=== PATIENT | male | born 1945 | race Caucasian/White ===

== ENCOUNTER 2017-09-08 10:59 | Day surgery (SDC) | payer MEDICARE, BC ==
[~2017-09-08 10:59] MED LIST: ACET325 PO; ALUMAG30SU PO; ASCO500 PO; ASPI325 PO; ASPI325EC PO; ASPI81CH PO; ATOR40TA PO; AVALOX PO; Biscolax10 MG PR; CALCAVITD PO; CLOP75 PO; DIAZ2 PO; DOCU100 PO; ERGO400 PO; ERGO50000 PO; FAMO20 PO; FERGLU300 PO; Fergon240 M1 PO; HYDR1TAB94 PO; Lisinopril2.5 MG PO; METO25ER PO; MORP30ER PO; MULVITMIND PO; Milk Of Ma400 MG/5 M PO; NITR.4SL SL; NTG SL; OMEPRAZOLE MAGN20 MG PO; OXYACE5T PO; POTCHL10ER PO; PRED5 PO; RISE30 PO; RISE5 PO; SIMV10 PO; SIMV20 PO; SULTRIDS PO; VITAMIN D5000 UNIT PO
== END 2017-09-08 12:25 | disposition home or self-care (01) ==
LOC: WOUND 10:59
DX: Z48.00 Encounter for change or removal of nonsurgical wound dressing (principal); L89.154 Pressure ulcer of sacral region, stage 4
CPT/HCPCS: G0463

== ENCOUNTER 2017-10-07 00:37 | Day surgery (SDC) | payer MEDICARE, BC | END 2017-10-07 22:00 | disposition home or self-care (01) | LOC: WOUND 00:37 | DX: Z48.00 Encounter for change or removal of nonsurgical wound dressing (principal); L89.154 Pressure ulcer of sacral region, stage 4 | CPT/HCPCS: 36415; 80053; 85025; G0463 ==

== ENCOUNTER 2017-10-21 00:11 | Day surgery (SDC) | payer MEDICARE, BC | END 2017-10-21 22:59 | disposition home or self-care (01) | LOC: WOUND 00:11 | DX: Z48.00 Encounter for change or removal of nonsurgical wound dressing (principal); L89.154 Pressure ulcer of sacral region, stage 4 | CPT/HCPCS: G0463 ==

== ENCOUNTER 2017-11-04 13:52 | Day surgery (SDC) | payer MEDICARE, BC | END 2017-11-04 17:03 | disposition home or self-care (01) | LOC: WOUND 13:52 | PROC: 0HB6XZZ Excision of Back Skin, External Approach (ICD-10-PCS; principal; 2017-11-04) | DX: L89.154 Pressure ulcer of sacral region, stage 4 (principal) | CPT/HCPCS: G0463 ==

== ENCOUNTER 2017-12-08 00:13 | Day surgery (SDC) | payer MEDICARE, BC | END 2017-12-08 22:39 | disposition home or self-care (01) | LOC: WOUND | DX: Z48.00 Encounter for change or removal of nonsurgical wound dressing (principal); L89.154 Pressure ulcer of sacral region, stage 4 | CPT/HCPCS: G0463 ==

== ENCOUNTER 2017-12-29 00:13 | Day surgery (SDC) | payer MEDICARE, BC | END 2017-12-29 23:00 | disposition home or self-care (01) | LOC: WOUND 00:13 | DX: Z48.00 Encounter for change or removal of nonsurgical wound dressing (principal); L89.154 Pressure ulcer of sacral region, stage 4 | CPT/HCPCS: G0463 ==

== ENCOUNTER 2018-01-31 14:00 | Day surgery (SDC) | payer MEDICARE, BC | END 2018-01-31 14:29 | disposition home or self-care (01) | LOC: WOUND 14:00 | DX: Z48.00 Encounter for change or removal of nonsurgical wound dressing (principal); L89.154 Pressure ulcer of sacral region, stage 4 | CPT/HCPCS: G0463 ==

== ENCOUNTER 2018-03-03 15:45 | Day surgery (SDC) | payer MEDICARE, BC | END 2018-03-03 17:01 | disposition home or self-care (01) | LOC: WOUND 15:45 | DX: L89.154 Pressure ulcer of sacral region, stage 4 (principal); I25.2 Old myocardial infarction | CPT/HCPCS: G0463 ==

== ENCOUNTER 2018-03-31 10:08 | Day surgery (SDC) | payer MEDICARE, BC ==
[2018-03-31] MEDS ORDERED: POTA10T PO (14:45)
== END 2018-03-31 14:26 | disposition home or self-care (01) ==
LOC: ATC 10:08
DX: L89.154 Pressure ulcer of sacral region, stage 4 (principal); I10 Essential (primary) hypertension; E78.5 Hyperlipidemia, unspecified
CPT/HCPCS: 99212

== ENCOUNTER 2018-08-30 12:29 | Day surgery (SDC) | payer MEDICARE, BC ==
[~2018-08-30 12:29] MED LIST changes: +POTA10T PO
== END 2018-08-30 22:38 | disposition home or self-care (01) ==
LOC: WOUND 12:29
DX: L89.153 Pressure ulcer of sacral region, stage 3 (principal); G82.20 Paraplegia, unspecified
CPT/HCPCS: G0463

== ENCOUNTER 2018-10-02 14:15 | Day surgery (SDC) | payer MEDICARE, BC | END 2018-10-02 22:40 | disposition home or self-care (01) | LOC: WOUND 14:15 | DX: L89.154 Pressure ulcer of sacral region, stage 4 (principal); L89.229 Pressure ulcer of left hip, unspecified stage; G82.20 Paraplegia, unspecified ==

== ENCOUNTER 2018-10-30 00:46 | Day surgery (SDC) | payer MEDICARE, BC | END 2018-10-30 22:51 | disposition home or self-care (01) | LOC: WOUND 00:46 | DX: L89.154 Pressure ulcer of sacral region, stage 4 (principal); G82.20 Paraplegia, unspecified ==

== ENCOUNTER 2018-11-28 00:26 | Day surgery (SDC) | payer MEDICARE, BC | END 2018-11-28 22:51 | disposition home or self-care (01) | LOC: WOUND 00:26 | DX: L89.154 Pressure ulcer of sacral region, stage 4 (principal); G82.20 Paraplegia, unspecified; I89.0 Lymphedema, not elsewhere classified; I25.10 Atherosclerotic heart disease of native coronary artery without angina pectoris; I10 Essential (primary) hypertension; I25.2 Old myocardial infarction; I73.9 Peripheral vascular disease, unspecified; G62.9 Polyneuropathy, unspecified ==

== ENCOUNTER 2018-12-26 10:52 | Day surgery (SDC) | payer MEDICARE, BC | END 2018-12-26 22:59 | disposition home or self-care (01) | LOC: WOUND 10:52 | DX: L89.154 Pressure ulcer of sacral region, stage 4 (principal); G82.20 Paraplegia, unspecified ==

== ENCOUNTER 2019-01-22 01:36 | Day surgery (SDC) | payer MEDICARE, BC | END 2019-01-22 22:39 | disposition home or self-care (01) | LOC: WOUND 01:36 | DX: L89.154 Pressure ulcer of sacral region, stage 4 (principal); G82.20 Paraplegia, unspecified; I25.10 Atherosclerotic heart disease of native coronary artery without angina pectoris; I11.0 Hypertensive heart disease with heart failure; I50.9 Heart failure, unspecified; I25.2 Old myocardial infarction ==

== ENCOUNTER 2019-02-19 10:55 | Day surgery (SDC) | payer MEDICARE, BC | END 2019-02-19 22:47 | disposition home or self-care (01) | LOC: WOUND 10:55 | PROC: 0HD6XZZ Extraction of Back Skin, External Approach (ICD-10-PCS; principal; 2019-02-19) | DX: L89.154 Pressure ulcer of sacral region, stage 4 (principal); G82.22 Paraplegia, incomplete ==

== ENCOUNTER 2019-03-26 00:24 | Day surgery (SDC) | payer MEDICARE, BC | END 2019-03-26 23:12 | disposition home or self-care (01) | LOC: WOUND 00:24 | DX: L89.154 Pressure ulcer of sacral region, stage 4 (principal); G82.20 Paraplegia, unspecified ==

== ENCOUNTER 2019-05-08 00:30 | Day surgery (SDC) | payer MEDICARE, BC | END 2019-05-08 22:48 | disposition home or self-care (01) | LOC: WOUND 00:30 | DX: L89.154 Pressure ulcer of sacral region, stage 4 (principal); G82.20 Paraplegia, unspecified; I11.0 Hypertensive heart disease with heart failure; I50.9 Heart failure, unspecified; I25.10 Atherosclerotic heart disease of native coronary artery without angina pectoris | CPT/HCPCS: Q4196 ==

== ENCOUNTER 2019-05-14 11:12 | Day surgery (SDC) | payer MEDICARE, BC | END 2019-05-14 23:07 | disposition home or self-care (01) | LOC: WOUND 11:12 | DX: L89.154 Pressure ulcer of sacral region, stage 4 (principal); G82.20 Paraplegia, unspecified; I11.0 Hypertensive heart disease with heart failure; I25.10 Atherosclerotic heart disease of native coronary artery without angina pectoris | CPT/HCPCS: G0463 ==

== ENCOUNTER 2019-06-12 00:20 | Day surgery (SDC) | payer MEDICARE, BC | END 2019-06-12 22:44 | disposition home or self-care (01) | LOC: WOUND 00:20 | DX: L89.154 Pressure ulcer of sacral region, stage 4 (principal); G82.20 Paraplegia, unspecified; I11.0 Hypertensive heart disease with heart failure; I50.9 Heart failure, unspecified; I25.10 Atherosclerotic heart disease of native coronary artery without angina pectoris ==

== ENCOUNTER 2019-06-18 14:02 | Day surgery (SDC) | payer MEDICARE, BC | END 2019-06-18 22:45 | disposition home or self-care (01) | LOC: WOUND 14:02 | DX: L89.154 Pressure ulcer of sacral region, stage 4 (principal); G82.20 Paraplegia, unspecified ==

== ENCOUNTER 2019-06-27 14:21 | Day surgery (SDC) | payer MEDICARE, BC | END 2019-06-29 23:12 | disposition home or self-care (01) | LOC: WOUND 14:21 | DX: L89.154 Pressure ulcer of sacral region, stage 4 (principal); G82.20 Paraplegia, unspecified; I11.0 Hypertensive heart disease with heart failure; I50.9 Heart failure, unspecified ==

== ENCOUNTER 2019-07-05 00:18 | Day surgery (SDC) | payer MEDICARE, BC | END 2019-07-05 23:15 | disposition home or self-care (01) | LOC: WOUND 00:18 | DX: L89.154 Pressure ulcer of sacral region, stage 4 (principal); G82.22 Paraplegia, incomplete | CPT/HCPCS: G0463 ==

== ENCOUNTER 2019-07-12 10:52 | Day surgery (SDC) | payer MEDICARE, BC | END 2019-07-12 23:18 | disposition home or self-care (01) | LOC: WOUND 10:52 | DX: L89.154 Pressure ulcer of sacral region, stage 4 (principal); G82.20 Paraplegia, unspecified ==

== ENCOUNTER 2019-08-23 00:26 | Day surgery (SDC) | payer MEDICARE, BC | END 2019-08-23 23:14 | disposition home or self-care (01) | LOC: WOUND 00:26 | DX: I96 Gangrene, not elsewhere classified (principal); L89.154 Pressure ulcer of sacral region, stage 4; G82.22 Paraplegia, incomplete; I89.0 Lymphedema, not elsewhere classified; D64.9 Anemia, unspecified; I11.0 Hypertensive heart disease with heart failure; I50.9 Heart failure, unspecified; I25.10 Atherosclerotic heart disease of native coronary artery without angina pectoris; G62.9 Polyneuropathy, unspecified; I25.2 Old myocardial infarction; Z86.718 Personal history of other venous thrombosis and embolism; Z79.82 Long term (current) use of aspirin; Z79.02 Long term (current) use of antithrombotics/antiplatelets; Z79.899 Other long term (current) drug therapy | CPT/HCPCS: G0463 ==

== ENCOUNTER 2019-09-20 00:28 | Day surgery (SDC) | payer MEDICARE, BC | END 2019-09-20 11:25 | disposition home or self-care (01) | LOC: WOUND 00:28 | DX: L89.154 Pressure ulcer of sacral region, stage 4 (principal); G82.20 Paraplegia, unspecified ==

== ENCOUNTER 2019-10-18 00:12 | Day surgery (SDC) | payer MEDICARE, BC | END 2019-10-18 23:01 | disposition home or self-care (01) | LOC: WOUND 00:12 | DX: L89.154 Pressure ulcer of sacral region, stage 4 (principal); G82.20 Paraplegia, unspecified ==

== ENCOUNTER 2019-11-20 08:43 | Day surgery (SDC) | payer MEDICARE, BC | END 2019-11-20 22:49 | disposition home or self-care (01) | LOC: WOUND 08:43 | DX: L89.154 Pressure ulcer of sacral region, stage 4 (principal); G82.22 Paraplegia, incomplete ==

== ENCOUNTER 2019-12-20 00:08 | Day surgery (SDC) | payer MEDICARE, BC | END 2019-12-20 22:42 | disposition home or self-care (01) | LOC: WOUND 00:08 | DX: L89.154 Pressure ulcer of sacral region, stage 4 (principal); G82.20 Paraplegia, unspecified ==

== ENCOUNTER 2020-01-16 08:31 | Day surgery (SDC) | payer MEDICARE, BC | END 2020-01-16 22:53 | disposition home or self-care (01) | LOC: WOUND 08:31 | DX: L89.154 Pressure ulcer of sacral region, stage 4 (principal); G82.20 Paraplegia, unspecified ==

== ENCOUNTER 2020-04-17 00:24 | Day surgery (SDC) | payer MEDICARE, BC | END 2020-04-17 22:37 | disposition home or self-care (01) | LOC: WOUND 00:24 | DX: L89.154 Pressure ulcer of sacral region, stage 4 (principal); G82.20 Paraplegia, unspecified ==

== ENCOUNTER 2020-05-16 00:31 | Day surgery (SDC) | payer MEDICARE, BC | END 2020-05-16 12:00 | disposition home or self-care (01) | LOC: WOUND 00:31 | DX: L89.154 Pressure ulcer of sacral region, stage 4 (principal); G82.20 Paraplegia, unspecified | CPT/HCPCS: G0463 ==

== ENCOUNTER 2020-06-13 02:13 | Day surgery (SDC) | payer MEDICARE, BC | END 2020-06-13 22:58 | disposition home or self-care (01) | LOC: WOUND 02:13 | DX: L89.154 Pressure ulcer of sacral region, stage 4 (principal); G82.20 Paraplegia, unspecified ==

== ENCOUNTER 2020-07-11 00:49 | Day surgery (SDC) | payer MEDICARE, BC | END 2020-07-11 23:58 | disposition home or self-care (01) | LOC: WOUND 00:49 | DX: I96 Gangrene, not elsewhere classified (principal); L89.154 Pressure ulcer of sacral region, stage 4; G82.20 Paraplegia, unspecified; I89.0 Lymphedema, not elsewhere classified; D64.9 Anemia, unspecified; I11.0 Hypertensive heart disease with heart failure; I50.9 Heart failure, unspecified; I25.10 Atherosclerotic heart disease of native coronary artery without angina pectoris; E78.5 Hyperlipidemia, unspecified; K21.9 Gastro-esophageal reflux disease without esophagitis; G89.4 Chronic pain syndrome; I25.2 Old myocardial infarction; G62.9 Polyneuropathy, unspecified; Z79.02 Long term (current) use of antithrombotics/antiplatelets; Z79.82 Long term (current) use of aspirin; Z79.899 Other long term (current) drug therapy; Z86.718 Personal history of other venous thrombosis and embolism | CPT/HCPCS: G0463 ==

== ENCOUNTER 2020-08-08 00:43 | Day surgery (SDC) | payer MEDICARE, BC | END 2020-08-08 23:35 | disposition home or self-care (01) | LOC: WOUND 00:43 | DX: I96 Gangrene, not elsewhere classified (principal); L89.154 Pressure ulcer of sacral region, stage 4; G82.22 Paraplegia, incomplete; I89.0 Lymphedema, not elsewhere classified; I11.0 Hypertensive heart disease with heart failure; I50.9 Heart failure, unspecified; I25.10 Atherosclerotic heart disease of native coronary artery without angina pectoris; D64.9 Anemia, unspecified; I25.2 Old myocardial infarction; G62.9 Polyneuropathy, unspecified; Z79.82 Long term (current) use of aspirin; Z79.899 Other long term (current) drug therapy; Z79.02 Long term (current) use of antithrombotics/antiplatelets | CPT/HCPCS: G0463 ==

== ENCOUNTER 2020-09-08 00:28 | Day surgery (SDC) | payer MEDICARE, BC | END 2020-09-08 22:40 | disposition home or self-care (01) | LOC: WOUND 00:28 | DX: L89.154 Pressure ulcer of sacral region, stage 4 (principal); G82.20 Paraplegia, unspecified | CPT/HCPCS: G0463 ==

== ENCOUNTER 2020-10-03 02:27 | Day surgery (SDC) | payer MEDICARE, BC | END 2020-10-03 22:43 | disposition home or self-care (01) | LOC: WOUND 02:27 | DX: L89.154 Pressure ulcer of sacral region, stage 4 (principal); G82.22 Paraplegia, incomplete ==

== ENCOUNTER 2020-10-31 00:58 | Day surgery (SDC) | payer MEDICARE, BC | END 2020-10-31 23:07 | disposition home or self-care (01) | LOC: WOUND 00:58 | DX: L89.154 Pressure ulcer of sacral region, stage 4 (principal); G82.20 Paraplegia, unspecified ==

== ENCOUNTER 2020-11-27 00:27 | Day surgery (SDC) | payer MEDICARE, BC | END 2020-11-27 22:54 | disposition home or self-care (01) | LOC: WOUND 00:27 | DX: L89.154 Pressure ulcer of sacral region, stage 4 (principal); G82.20 Paraplegia, unspecified ==

== ENCOUNTER 2020-12-25 01:55 | Day surgery (SDC) | payer MEDICARE, BC | END 2020-12-25 23:13 | disposition home or self-care (01) | LOC: WOUND 01:55 | DX: L89.154 Pressure ulcer of sacral region, stage 4 (principal); G82.20 Paraplegia, unspecified ==

== ENCOUNTER 2021-01-22 05:32 | Day surgery (SDC) | payer MEDICARE, BC | END 2021-01-22 22:44 | disposition home or self-care (01) | LOC: WOUND 05:32 | DX: L89.154 Pressure ulcer of sacral region, stage 4 (principal); G82.20 Paraplegia, unspecified ==

== ENCOUNTER 2021-02-19 02:31 | Day surgery (SDC) | payer MEDICARE, BC | END 2021-02-19 23:11 | disposition home or self-care (01) | LOC: WOUND 02:31 | DX: L89.154 Pressure ulcer of sacral region, stage 4 (principal); G82.20 Paraplegia, unspecified ==

== ENCOUNTER 2021-03-19 02:15 | Day surgery (SDC) | payer MEDICARE, BC | END 2021-03-19 22:41 | disposition home or self-care (01) | LOC: WOUND 02:15 | DX: L89.154 Pressure ulcer of sacral region, stage 4 (principal); G82.20 Paraplegia, unspecified | CPT/HCPCS: A9270 ==

== ENCOUNTER 2021-04-16 01:58 | Day surgery (SDC) | payer MEDICARE, BC | END 2021-04-16 23:32 | disposition home or self-care (01) | LOC: WOUND 01:58 | DX: L89.154 Pressure ulcer of sacral region, stage 4 (principal); G82.22 Paraplegia, incomplete ==

== ENCOUNTER 2021-05-19 12:35 | Day surgery (SDC) | payer MEDICARE, BC | END 2021-05-19 22:43 | disposition home or self-care (01) | LOC: WOUND 12:35 | DX: L89.154 Pressure ulcer of sacral region, stage 4 (principal) ==

== ENCOUNTER 2021-06-18 01:33 | Day surgery (SDC) | payer MEDICARE, BC | END 2021-06-18 23:07 | disposition home or self-care (01) | LOC: WOUND 01:33 | DX: L89.154 Pressure ulcer of sacral region, stage 4 (principal); G82.20 Paraplegia, unspecified ==

== ENCOUNTER 2021-07-14 05:35 | Day surgery (SDC) | payer MEDICARE, BC | END 2021-07-14 22:44 | disposition home or self-care (01) | LOC: WOUND 05:35 | DX: L89.154 Pressure ulcer of sacral region, stage 4 (principal); G82.20 Paraplegia, unspecified | CPT/HCPCS: A9270; G0463 ==

== ENCOUNTER 2021-08-11 04:19 | Day surgery (SDC) | payer MEDICARE, BC | END 2021-08-11 12:00 | disposition home or self-care (01) | LOC: WOUND 04:19 | DX: L89.154 Pressure ulcer of sacral region, stage 4 (principal); G82.20 Paraplegia, unspecified ==

== ENCOUNTER 2021-09-08 05:48 | Day surgery (SDC) | payer MEDICARE, BC | END 2021-09-08 22:40 | disposition home or self-care (01) | LOC: WOUND 05:48 | DX: L89.154 Pressure ulcer of sacral region, stage 4 (principal); G82.20 Paraplegia, unspecified ==

== ENCOUNTER 2021-10-06 04:12 | Day surgery (SDC) | payer MEDICARE, BC | END 2021-10-06 22:39 | disposition home or self-care (01) | LOC: WOUND 04:12 | DX: L89.154 Pressure ulcer of sacral region, stage 4 (principal); G82.20 Paraplegia, unspecified | CPT/HCPCS: A9270 ==

== ENCOUNTER 2021-11-03 08:00 | Day surgery (SDC) | payer MEDICARE, BC | END 2021-11-03 23:59 | disposition home or self-care (01) | LOC: WOUND 08:00 | DX: L89.154 Pressure ulcer of sacral region, stage 4 (principal); G82.20 Paraplegia, unspecified | CPT/HCPCS: A9270 ==

== ENCOUNTER 2021-12-01 02:12 | Day surgery (SDC) | payer MEDICARE, BC | END 2021-12-01 22:58 | disposition home or self-care (01) | LOC: WOUND 02:12 | DX: L89.154 Pressure ulcer of sacral region, stage 4 (principal); G82.20 Paraplegia, unspecified | CPT/HCPCS: A9270 ==

== ENCOUNTER 2021-12-29 03:02 | Day surgery (SDC) | payer MEDICARE, BC | END 2021-12-29 23:31 | disposition home or self-care (01) | LOC: WOUND 03:02 | DX: L89.154 Pressure ulcer of sacral region, stage 4 (principal); G82.20 Paraplegia, unspecified | CPT/HCPCS: A9270 ==

== ENCOUNTER 2022-01-26 01:07 | Day surgery (SDC) | payer MEDICARE, BC | END 2022-01-26 23:24 | disposition home or self-care (01) | LOC: WOUND 01:07 | DX: L89.154 Pressure ulcer of sacral region, stage 4 (principal); G82.20 Paraplegia, unspecified | CPT/HCPCS: A9270 ==

== ENCOUNTER 2022-02-23 01:27 | Day surgery (SDC) | payer MEDICARE, BC | END 2022-02-23 05:34 | disposition home or self-care (01) | LOC: WOUND 01:27 | DX: L89.154 Pressure ulcer of sacral region, stage 4 (principal); G82.20 Paraplegia, unspecified | CPT/HCPCS: G0463 ==

== ENCOUNTER 2022-04-27 01:49 | Day surgery (SDC) | payer MEDICARE, BC | END 2022-04-27 23:53 | disposition home or self-care (01) | LOC: WOUND 01:49 | DX: L89.154 Pressure ulcer of sacral region, stage 4 (principal); G82.20 Paraplegia, unspecified ==

== ENCOUNTER 2022-05-25 02:26 | Day surgery (SDC) | payer MEDICARE, BC | END 2022-05-25 22:52 | disposition home or self-care (01) | LOC: WOUND 02:26 | DX: L89.154 Pressure ulcer of sacral region, stage 4 (principal); G82.20 Paraplegia, unspecified ==

== ENCOUNTER 2022-06-22 03:04 | Day surgery (SDC) | payer MEDICARE, BC | END 2022-06-22 23:24 | disposition home or self-care (01) | LOC: WOUND 03:04 | DX: L89.154 Pressure ulcer of sacral region, stage 4 (principal); G82.20 Paraplegia, unspecified ==

== ENCOUNTER 2022-07-27 02:16 | Day surgery (SDC) | payer MEDICARE, BC | END 2022-07-27 23:05 | disposition home or self-care (01) | LOC: WOUND 02:16 | DX: L89.154 Pressure ulcer of sacral region, stage 4 (principal); G82.20 Paraplegia, unspecified ==

== ENCOUNTER 2022-08-24 01:26 | Day surgery (SDC) | payer MEDICARE, BC | END 2022-08-24 22:40 | disposition home or self-care (01) | LOC: WOUND 01:26 | DX: L89.154 Pressure ulcer of sacral region, stage 4 (principal); G82.20 Paraplegia, unspecified ==

== ENCOUNTER 2022-09-28 01:03 | Day surgery (SDC) | payer MEDICARE, BC | END 2022-09-28 22:57 | disposition home or self-care (01) | LOC: WOUND 01:03 | DX: L89.154 Pressure ulcer of sacral region, stage 4 (principal); G82.20 Paraplegia, unspecified ==

== ENCOUNTER 2022-10-26 00:27 | Day surgery (SDC) | payer MEDICARE, BC | END 2022-10-26 23:04 | disposition home or self-care (01) | LOC: WOUND 00:27 | DX: L89.154 Pressure ulcer of sacral region, stage 4 (principal); G82.20 Paraplegia, unspecified | CPT/HCPCS: G0463 ==

== ENCOUNTER 2022-11-23 02:34 | Day surgery (SDC) | payer MEDICARE, BC | END 2022-11-23 22:48 | disposition home or self-care (01) | LOC: WOUND 02:34 | DX: L89.154 Pressure ulcer of sacral region, stage 4 (principal); G82.20 Paraplegia, unspecified | CPT/HCPCS: A9270 ==

== ENCOUNTER 2023-01-04 02:38 | Day surgery (SDC) | payer MEDICARE, BC | END 2023-01-04 23:03 | disposition home or self-care (01) | LOC: WOUND 02:38 | DX: L89.154 Pressure ulcer of sacral region, stage 4 (principal); G82.20 Paraplegia, unspecified | CPT/HCPCS: G0463 ==

== ENCOUNTER 2023-01-10 01:26 | Day surgery (SDC) | payer MEDICARE, BC | END 2023-01-10 22:55 | disposition home or self-care (01) | LOC: WOUND 01:26 | DX: L89.154 Pressure ulcer of sacral region, stage 4 (principal); G82.20 Paraplegia, unspecified | CPT/HCPCS: G0463 ==

== ENCOUNTER 2023-04-11 00:49 | Day surgery (SDC) | payer MEDICARE, BC | END 2023-04-11 22:46 | disposition home or self-care (01) | LOC: WOUND 00:49 | DX: L89.154 Pressure ulcer of sacral region, stage 4 (principal); G82.20 Paraplegia, unspecified | CPT/HCPCS: G0463 ==

== ENCOUNTER 2023-05-09 01:56 | Day surgery (SDC) | payer MEDICARE, BC | END 2023-05-09 22:58 | disposition home or self-care (01) | LOC: WOUND 01:56 | DX: L89.154 Pressure ulcer of sacral region, stage 4 (principal); G82.20 Paraplegia, unspecified | CPT/HCPCS: G0463 ==

== ENCOUNTER 2023-06-06 01:59 | Day surgery (SDC) | payer MEDICARE, BC | END 2023-06-06 22:51 | disposition home or self-care (01) | LOC: WOUND 01:59 | DX: L89.154 Pressure ulcer of sacral region, stage 4 (principal); G82.20 Paraplegia, unspecified | CPT/HCPCS: G0463 ==

== ENCOUNTER 2024-07-12 13:06 | Emergency (ER) | payer MEDICARE, BC ==
[~2024-07-12] VITALS: Ht 167.6 cm; Wt 65.8 kg
[2024-07-12 13:50] LABS: BASOPHILS ABSOLUTE AUTO 0.06 K/mm3 (0.00-0.23); BASOPHILS PERCENT AUTO 1 % (0-2); EOSINOPHILS ABSOLUTE AUTO 0.14 K/mm3 (0.00-0.68); EOSINOPHILS PERCENT AUTO 2 % (0-6); Hematocrit 36.1 % (37.0-53.0); Hemoglobin 11.4 g/dL (13.5-17.5); IMMATURE GRAN ABSOLUTE AUTO 0.04 K/mm3 (0.00-0.10); IMMATURE GRAN PERCENT AUTO 0 % (0-1); LYMPHOCYTES ABSOLUTE AUTO 0.66 K/mm3 (0.84-5.20); LYMPHOCYTES PERCENT AUTO 7 % (21-46); MONOCYTES ABSOLUTE AUTO 0.67 K/mm3 (0.16-1.47); MONOCYTES PERCENT AUTO 7 % (4-13); Mean Corpuscular HGB 30.3 pg (26.0-34.0); Mean Corpuscular HGB Conc 31.6 g/dL (31.5-36.5); Mean Corpuscular Volume 96 fL (80-100); Mean Platelet Volume 9.1 fL (9.1-12.4); NEUTROPHILS ABSOLUTE AUTO 7.72 K/mm3 (1.96-9.15); NEUTROPHILS PERCENT AUTO 83 % (41-73); Platelet Count 411 K/mm3 (150-400); RDW Coefficient Variation 13.4 % (11.7-14.2); RDW Standard Deviation 47.1 fL (35.1-46.3); Red Blood Cell Count 3.76 M/mm3 (4.30-5.90); White Blood Cell Count 9.29 K/mm3 (4.00-11.30)
[2024-07-12 14:10] LABS: Albumin, Blood 2.8 g/dL (3.4-5.0); Albumin/Globulin Ratio 0.5 (0.8-1.8); Bilirubin, Total 0.3 mg/dL (0.1-1.0); Bun/Creatinine Ratio 15.2 (12.0-20.0); Creatinine, Blood 1.12 mg/dL (0.60-1.20); Globulin, Blood 5.3 g/dL (2.2-4.0); Potassium, Blood 3.6 mmol/L (3.5-5.5); Total Protein, Blood 8.1 g/dL (6.4-8.2)
[2024-07-12 19:15] VITALS: BP 144/71
== END 2024-07-12 19:45 | disposition home or self-care (01) ==
LOC: ER 13:06
PROVIDERS: Emergency Medicine
DX: S31.000A Unspecified open wound of lower back and pelvis without penetration into retroperitoneum, initial encounter (principal); L89.154 Pressure ulcer of sacral region, stage 4; G82.20 Paraplegia, unspecified; K21.9 Gastro-esophageal reflux disease without esophagitis; I10 Essential (primary) hypertension; I25.2 Old myocardial infarction; I25.10 Atherosclerotic heart disease of native coronary artery without angina pectoris; E78.5 Hyperlipidemia, unspecified; M81.0 Age-related osteoporosis without current pathological fracture; R63.4 Abnormal weight loss; Z91.81 History of falling; Z87.891 Personal history of nicotine dependence; Z79.82 Long term (current) use of aspirin; Z79.02 Long term (current) use of antithrombotics/antiplatelets; Z79.899 Other long term (current) drug therapy; X58.XXXA Exposure to other specified factors, initial encounter
CPT/HCPCS: 72193; 80053; 83605; 85025; 85651; 86140; 87040; 99283-25; Q9967

== ENCOUNTER 2024-07-31 04:09 | Day surgery (SDC) | payer MEDICARE, BC | END 2024-07-31 23:00 | disposition home or self-care (01) | LOC: WOUND 04:09 | DX: L89.154 Pressure ulcer of sacral region, stage 4 (principal); I11.0 Hypertensive heart disease with heart failure; I50.9 Heart failure, unspecified; I25.10 Atherosclerotic heart disease of native coronary artery without angina pectoris; I25.2 Old myocardial infarction; M19.90 Unspecified osteoarthritis, unspecified site; G82.20 Paraplegia, unspecified; S31.000D Unspecified open wound of lower back and pelvis without penetration into retroperitoneum, subsequent encounter; Z87.891 Personal history of nicotine dependence; X58.XXXD Exposure to other specified factors, subsequent encounter | CPT/HCPCS: G0463 ==

== ENCOUNTER 2024-08-07 04:34 | Day surgery (SDC) | payer MEDICARE, BC | END 2024-08-07 23:00 | disposition home or self-care (01) | LOC: WOUND 04:34 | DX: L89.154 Pressure ulcer of sacral region, stage 4 (principal); G82.22 Paraplegia, incomplete | CPT/HCPCS: A6213 ==

== ENCOUNTER 2024-08-27 03:48 | Day surgery (SDC) | payer MEDICARE, BC | END 2024-08-27 23:00 | disposition home or self-care (01) | LOC: WOUND 03:48 | DX: L89.154 Pressure ulcer of sacral region, stage 4 (principal); G82.22 Paraplegia, incomplete; I25.2 Old myocardial infarction | CPT/HCPCS: A6213; G0463 ==

== ENCOUNTER 2024-08-28 10:59 | Day surgery (SDC) | payer OTHER ==
[~2024-08-28] VITALS: Ht 167.6 cm; Wt 71.5 kg
[~2024-08-28 10:59] MED LIST changes: +Balanced Salt Epinephrine Irrigation Solution 500 mL IR SCH; +Lidocaine HCl/Pf 1% 5 ML VIAL XX SCH; +Moxifloxacin HCL 0.5 MG/0.1 ML 0.4MLSYR LEFTEYE SCH; +PHENYLEPHRINE\\TROPICAMIDE\\TETRACAINE OPHTHALMIC DILATING SOLN LEFTEYE PRN; +Povidone-Iodine 450 DROP/30 ML Solution LEFTEYE SCH; +Povidone-Iodine 450 DROP/30 ML Solution ONE; +Tetracaine HCl/Pf 0.5% Opth Soln 4 ml ONE
[2024-08-28] MEDS ORDERED: Diazepam 2 MG Tab ONE (11:20)
[2024-08-28] MEDS ORDERED: Diazepam 5 MG Tab ONE (11:21)
--- NOTE | 2024-08-28 11:34 | NUR ---
08/28/24 1134 EMELY GARCIA PT ADMIN 7MG VALIUM 1X PO W MINIMAL WATER PER . ORDERS BY MILLER.RN . TETRACAINE AND PLEDGETTE TO L EYE AT 1133 AND 1134 THX.RN END NOTE
[2024-08-28 13:07] VITALS: BP 141/74
== END 2024-08-28 12:52 | disposition home or self-care (01) ==
LOC: ORSCSDS 10:59
PROVIDERS: Student in an Organized Health Care Education/Training Program
PROC: 08RK3JZ Replacement of Left Lens with Synthetic Substitute, Percutaneous Approach (ICD-10-PCS; principal; 2024-08-28 12:30)
DX: H25.813 Combined forms of age-related cataract, bilateral (principal); H52.202 Unspecified astigmatism, left eye; I10 Essential (primary) hypertension; I25.10 Atherosclerotic heart disease of native coronary artery without angina pectoris; I25.2 Old myocardial infarction; K21.9 Gastro-esophageal reflux disease without esophagitis; Z79.02 Long term (current) use of antithrombotics/antiplatelets; Z79.899 Other long term (current) drug therapy
CPT/HCPCS: A9270; V2632

== ENCOUNTER 2024-09-03 04:39 | Day surgery (SDC) | payer MEDICARE, BC ==
[~2024-09-03 04:39] MED LIST changes: -Balanced Salt Epinephrine Irrigation Solution 500 mL IR SCH; -Lidocaine HCl/Pf 1% 5 ML VIAL XX SCH; -Moxifloxacin HCL 0.5 MG/0.1 ML 0.4MLSYR LEFTEYE SCH; -PHENYLEPHRINE\\TROPICAMIDE\\TETRACAINE OPHTHALMIC DILATING SOLN LEFTEYE PRN; -Povidone-Iodine 450 DROP/30 ML Solution LEFTEYE SCH; -Povidone-Iodine 450 DROP/30 ML Solution ONE; -Tetracaine HCl/Pf 0.5% Opth Soln 4 ml ONE
[2024-09-04] MEDS ORDERED: AMOX-CLAV 875-1 EAC5 PO (11:43)
== END 2024-09-03 23:00 | disposition home or self-care (01) ==
LOC: WOUND 04:39
DX: L89.154 Pressure ulcer of sacral region, stage 4 (principal); G82.22 Paraplegia, incomplete
CPT/HCPCS: A6213; G0463

== ENCOUNTER 2024-09-04 10:51 | Day surgery (SDC) | payer OTHER ==
[~2024-09-04] VITALS: Ht 167.6 cm; Wt 72.9 kg
[~2024-09-04 10:51] MED LIST changes: +Balanced Salt Epinephrine Irrigation Solution 500 mL IR SCH; +Lidocaine HCl/Pf 1% 5 ML VIAL XX SCH; +Moxifloxacin HCL 0.5 MG/0.1 ML 0.4MLSYR RIGHTEYE SCH; +PHENYLEPHRINE\\TROPICAMIDE\\TETRACAINE OPHTHALMIC DILATING SOLN RIGHTEYE PRN; +Povidone-Iodine 450 DROP/30 ML Solution ONE; +Povidone-Iodine 450 DROP/30 ML Solution RIGHTEYE SCH; +Tetracaine HCl/Pf 0.5% Opth Soln 4 ml ONE
[2024-09-04] MEDS ORDERED: Diazepam 5 MG Tab ONE (11:24)
[2024-09-04] MEDS ORDERED: Diazepam 2 MG Tab ONE (11:24)
[2024-09-04] MEDS ORDERED: AMOX-CLAV 875-1 EAC5 PO (11:43)
--- NOTE | 2024-09-04 11:56 | NUR ---
09/04/24 1156 Hanna Xavier PT STATES HIS ANXIETY IS 0/10.
[2024-09-04 12:49] VITALS: BP 146/78
--- NOTE | 2024-09-04 13:07 | NUR ---
09/04/24 5867 Alexandria Tran PT AMBULATED TO PRIVATE VEHICLE, UTILIZING HOME CRUTCHES. PT STEADY ON CRUTCHES. PT LEAVING W/ ALL BELONGINGS. NO VISIBLE SIGNS OF DISTRESS NOTED.
== END 2024-09-04 13:07 | disposition home or self-care (01) ==
LOC: ORSCSDS 10:51
PROVIDERS: Student in an Organized Health Care Education/Training Program
PROC: 08RJ3JZ Replacement of Right Lens with Synthetic Substitute, Percutaneous Approach (ICD-10-PCS; principal; 2024-09-04 12:30)
DX: H25.811 Combined forms of age-related cataract, right eye (principal); Z96.1 Presence of intraocular lens; I10 Essential (primary) hypertension; I25.2 Old myocardial infarction; I25.10 Atherosclerotic heart disease of native coronary artery without angina pectoris; K21.9 Gastro-esophageal reflux disease without esophagitis; G82.22 Paraplegia, incomplete; Z79.82 Long term (current) use of aspirin; Z79.02 Long term (current) use of antithrombotics/antiplatelets; Z79.899 Other long term (current) drug therapy; Z87.891 Personal history of nicotine dependence
CPT/HCPCS: A9270; V2632

== ENCOUNTER 2024-09-10 04:08 | Day surgery (SDC) | payer MEDICARE, BC ==
[~2024-09-10 04:08] MED LIST changes: +AMOX-CLAV 875-1 EAC5 PO; -Balanced Salt Epinephrine Irrigation Solution 500 mL IR SCH; -Lidocaine HCl/Pf 1% 5 ML VIAL XX SCH; -Moxifloxacin HCL 0.5 MG/0.1 ML 0.4MLSYR RIGHTEYE SCH; -PHENYLEPHRINE\\TROPICAMIDE\\TETRACAINE OPHTHALMIC DILATING SOLN RIGHTEYE PRN; -Povidone-Iodine 450 DROP/30 ML Solution ONE; -Povidone-Iodine 450 DROP/30 ML Solution RIGHTEYE SCH; -Tetracaine HCl/Pf 0.5% Opth Soln 4 ml ONE
== END 2024-09-10 23:00 | disposition home or self-care (01) ==
LOC: WOUND 04:08
DX: L89.154 Pressure ulcer of sacral region, stage 4 (principal); G82.22 Paraplegia, incomplete; I25.2 Old myocardial infarction
CPT/HCPCS: A6213; G0463

== ENCOUNTER 2024-09-17 06:21 | Day surgery (SDC) | payer MEDICARE, BC | END 2024-09-17 23:00 | disposition home or self-care (01) | LOC: WOUND 06:21 | DX: L89.154 Pressure ulcer of sacral region, stage 4 (principal); G82.22 Paraplegia, incomplete | CPT/HCPCS: A6213 ==

== ENCOUNTER 2024-09-25 01:39 | Day surgery (SDC) | payer MEDICARE, BC | END 2024-09-25 23:00 | disposition home or self-care (01) | LOC: WOUND 01:39 | DX: L89.154 Pressure ulcer of sacral region, stage 4 (principal); G82.20 Paraplegia, unspecified | CPT/HCPCS: A6213 ==

== ENCOUNTER 2024-10-01 00:46 | Day surgery (SDC) | payer MEDICARE, BC | END 2024-10-01 23:00 | disposition home or self-care (01) | LOC: WOUND 00:46 | DX: L89.154 Pressure ulcer of sacral region, stage 4 (principal); G82.20 Paraplegia, unspecified | CPT/HCPCS: A6213 ==

== ENCOUNTER 2024-10-08 01:10 | Day surgery (SDC) | payer MEDICARE, BC | END 2024-10-08 23:00 | disposition home or self-care (01) | LOC: WOUND 01:10 | DX: L89.154 Pressure ulcer of sacral region, stage 4 (principal); G82.20 Paraplegia, unspecified | CPT/HCPCS: G0463 ==

== ENCOUNTER 2024-10-15 01:04 | Day surgery (SDC) | payer MEDICARE, BC | END 2024-10-15 23:00 | disposition home or self-care (01) | LOC: WOUND 01:04 | DX: L89.154 Pressure ulcer of sacral region, stage 4 (principal); G82.22 Paraplegia, incomplete | CPT/HCPCS: G0463 ==

== ENCOUNTER 2024-10-22 01:29 | Day surgery (SDC) | payer MEDICARE, BC | END 2024-10-22 23:00 | disposition home or self-care (01) | LOC: WOUND 01:29 | DX: L89.154 Pressure ulcer of sacral region, stage 4 (principal); G82.20 Paraplegia, unspecified | CPT/HCPCS: G0463 ==

== ENCOUNTER 2024-10-29 02:30 | Day surgery (SDC) | payer MEDICARE, BC | END 2024-10-29 23:00 | disposition home or self-care (01) | LOC: WOUND 02:30 | DX: L89.154 Pressure ulcer of sacral region, stage 4 (principal); G82.22 Paraplegia, incomplete; I25.2 Old myocardial infarction | CPT/HCPCS: G0463 ==

== ENCOUNTER 2024-11-05 01:47 | Day surgery (SDC) | payer MEDICARE, BC | END 2024-11-05 23:22 | disposition home or self-care (01) | LOC: WOUND 01:47 | DX: L89.154 Pressure ulcer of sacral region, stage 4 (principal); G82.22 Paraplegia, incomplete; I25.2 Old myocardial infarction ==

== ENCOUNTER 2024-11-12 02:33 | Day surgery (SDC) | payer MEDICARE, BC | END 2024-11-12 22:52 | disposition home or self-care (01) | LOC: WOUND 02:33 | DX: L89.154 Pressure ulcer of sacral region, stage 4 (principal); G82.20 Paraplegia, unspecified | CPT/HCPCS: G0463 ==

== ENCOUNTER 2024-11-19 00:57 | Day surgery (SDC) | payer MEDICARE, BC | END 2024-11-20 23:00 | disposition home or self-care (01) | LOC: WOUND 00:57 | DX: L89.154 Pressure ulcer of sacral region, stage 4 (principal); G82.22 Paraplegia, incomplete; I25.2 Old myocardial infarction | CPT/HCPCS: G0463 ==

== ENCOUNTER 2024-11-26 01:19 | Day surgery (SDC) | payer MEDICARE, BC | END 2024-11-26 23:00 | disposition home or self-care (01) | LOC: WOUND 01:19 | DX: L89.154 Pressure ulcer of sacral region, stage 4 (principal); G82.22 Paraplegia, incomplete; I25.2 Old myocardial infarction | CPT/HCPCS: G0463 ==

== ENCOUNTER 2024-12-03 01:39 | Day surgery (SDC) | payer MEDICARE, BC | END 2024-12-03 23:00 | disposition home or self-care (01) | LOC: WOUND 01:39 | DX: L89.154 Pressure ulcer of sacral region, stage 4 (principal) | CPT/HCPCS: G0463 ==

== ENCOUNTER → 2024-12-10 | Day surgery (SDC) | payer MEDICARE, BC | LOC: WOUND 12:43 | DX: L89.154 Pressure ulcer of sacral region, stage 4 (principal); G82.20 Paraplegia, unspecified | CPT/HCPCS: G0463 ==

== ENCOUNTER 2024-12-17 08:54 | Day surgery (SDC) | payer MEDICARE, BC | END 2024-12-17 23:00 | disposition home or self-care (01) | LOC: WOUND 08:54 | DX: L89.154 Pressure ulcer of sacral region, stage 4 (principal); G82.20 Paraplegia, unspecified | CPT/HCPCS: G0463 ==

== ENCOUNTER 2024-12-24 05:58 | Day surgery (SDC) | payer MEDICARE, BC | END 2024-12-24 23:00 | disposition home or self-care (01) | LOC: WOUND 05:58 | DX: L89.154 Pressure ulcer of sacral region, stage 4 (principal); G82.22 Paraplegia, incomplete | CPT/HCPCS: G0463 ==

== ENCOUNTER 2024-12-31 04:07 | Day surgery (SDC) | payer MEDICARE, BC | END 2024-12-31 23:17 | disposition home or self-care (01) | LOC: WOUND 04:07 | DX: L89.154 Pressure ulcer of sacral region, stage 4 (principal); G82.20 Paraplegia, unspecified | CPT/HCPCS: G0463 ==

== ENCOUNTER 2025-01-07 01:48 | Day surgery (SDC) | payer MEDICARE, BC | END 2025-01-07 23:23 | disposition home or self-care (01) | LOC: WOUND 01:48 | DX: L89.154 Pressure ulcer of sacral region, stage 4 (principal); G82.20 Paraplegia, unspecified | CPT/HCPCS: G0463 ==

== ENCOUNTER 2025-01-28 03:25 | Day surgery (SDC) | payer MEDICARE, BC | END 2025-01-28 23:47 | disposition home or self-care (01) | LOC: WOUND 03:25 | DX: L89.154 Pressure ulcer of sacral region, stage 4 (principal); G82.22 Paraplegia, incomplete | CPT/HCPCS: G0463 ==

== ENCOUNTER 2025-02-18 08:00 | Day surgery (SDC) | payer MEDICARE, BC | END 2025-02-18 23:00 | disposition home or self-care (01) | LOC: WOUND 08:00 | DX: L89.154 Pressure ulcer of sacral region, stage 4 (principal); G82.20 Paraplegia, unspecified | CPT/HCPCS: G0463 ==

== ENCOUNTER 2025-02-25 04:48 | Day surgery (SDC) | payer MEDICARE, BC | END 2025-02-25 23:00 | disposition home or self-care (01) | LOC: WOUND 04:48 | DX: L89.154 Pressure ulcer of sacral region, stage 4 (principal); G82.22 Paraplegia, incomplete | CPT/HCPCS: G0463 ==

== ENCOUNTER 2025-03-11 01:02 | Day surgery (SDC) | payer MEDICARE, BC | END 2025-03-11 23:00 | disposition home or self-care (01) | LOC: WOUND 01:02 | DX: L89.154 Pressure ulcer of sacral region, stage 4 (principal); G82.22 Paraplegia, incomplete ==

== ENCOUNTER 2025-03-18 00:44 | Day surgery (SDC) | payer MEDICARE, BC | END 2025-03-18 23:00 | disposition home or self-care (01) | LOC: WOUND 00:44 | DX: L89.154 Pressure ulcer of sacral region, stage 4 (principal); G82.22 Paraplegia, incomplete ==

== ENCOUNTER 2025-04-01 00:40 | Day surgery (SDC) | payer MEDICARE, BC | END 2025-04-01 23:00 | disposition home or self-care (01) | LOC: WOUND 00:40 | DX: L89.154 Pressure ulcer of sacral region, stage 4 (principal); G82.22 Paraplegia, incomplete; I25.2 Old myocardial infarction ==

== ENCOUNTER 2025-04-29 01:20 | Day surgery (SDC) | payer MEDICARE, BC | END 2025-04-29 23:00 | disposition home or self-care (01) | LOC: WOUND 01:20 | DX: L89.154 Pressure ulcer of sacral region, stage 4 (principal); G82.20 Paraplegia, unspecified; I25.2 Old myocardial infarction ==

== ENCOUNTER 2025-05-06 02:41 | Day surgery (SDC) | payer MEDICARE, BC | END 2025-05-06 23:00 | disposition home or self-care (01) | LOC: WOUND 02:41 | DX: L89.154 Pressure ulcer of sacral region, stage 4 (principal); G82.20 Paraplegia, unspecified ==

== ENCOUNTER 2025-05-12 17:03 | Inpatient (IN) | payer OTHER, MEDICARE, BC ==
[~2025-05-12] VITALS: Ht 170.2 cm; Wt 72.5 kg
[~2025-05-12 17:03] MED LIST changes: +Hair, Skin & N1 EACH PO; -MULVITMIND PO; +OMEP20ER PO; -OMEPRAZOLE MAGN20 MG PO
[2025-05-12 17:38] LABS: BASOPHILS ABSOLUTE AUTO 0.04 K/mm3 (0.00-0.23); BASOPHILS PERCENT AUTO 0 % (0-2); EOSINOPHILS ABSOLUTE AUTO 0.03 K/mm3 (0.00-0.68); EOSINOPHILS PERCENT AUTO 0 % (0-6); Hematocrit 26.0 % (37.0-53.0); Hemoglobin 8.4 g/dL (13.5-17.5); IMMATURE GRAN ABSOLUTE AUTO 0.04 K/mm3 (0.00-0.10); IMMATURE GRAN PERCENT AUTO 0 % (0-1); LYMPHOCYTES ABSOLUTE AUTO 0.31 K/mm3 (0.84-5.20); LYMPHOCYTES PERCENT AUTO 3 % (21-46); MONOCYTES ABSOLUTE AUTO 0.95 K/mm3 (0.16-1.47); MONOCYTES PERCENT AUTO 10 % (4-13); Mean Corpuscular HGB Conc 32.3 g/dL (31.5-36.5); Mean Corpuscular Volume 104 fL (80-100); NEUTROPHILS ABSOLUTE AUTO 8.06 K/mm3 (1.96-9.15); NEUTROPHILS PERCENT AUTO 86 % (41-73); NRBC ABSOLUTE 0.00 K/mm3 (0.00-0.02); NRBC Auto 0.0 /100 WBC (0.0-0.2); Platelet Count 219 K/mm3 (150-400); RDW Coefficient Variation 13.3 % (11.7-14.2); RDW Standard Deviation 50.8 fL (35.1-46.3)
[2025-05-12 17:55] LABS: Alanine Aminotransfer (ALT/SGP 19.0 U/L (12-78); Albumin, Blood 2.7 g/dL (3.4-5.0); Albumin/Globulin Ratio 0.6 (0.8-1.8); Anion Gap 9.0 mmol/L (3-11); Aspartate Aminotrans (AST/SGOT 19.0 U/L (12-37); Bilirubin, Total 0.3 mg/dL (0.1-1.0); Blood Urea Nitrogen 23.0 mg/dL (8-24); CO2, Blood 25.0 mmol/L (21-32); Calcium, Blood 8.6 mg/dL (8.5-10.1); Chloride, Blood 107.0 mmol/L (98-108); Creatinine, Blood 1.44 mg/dL (0.60-1.20); Globulin, Blood 4.3 g/dL (2.2-4.0); Glucose, Blood 124.0 mg/dL (70-99); Magnesium, Blood 2.0 mg/dL (1.6-2.4); Phosphorus, Blood 1.9 mg/dL (2.5-4.9); Potassium, Blood 3.7 mmol/L (3.5-5.5); Sodium, Blood 137.0 mmol/L (136-145); Total Protein, Blood 7.0 g/dL (6.4-8.2)
[2025-05-12 17:58] LABS: Source, Urine Clean Catch
[2025-05-12 18:03] LABS: Bilirubin, Urine Neg (Neg); Color, Urine Yellow (P-Yellow); Glucose Qualitative, Urine Neg (Neg); Ketones, Urine Neg (Neg); Leukocyte Esterase, Urine 3+ (Neg); Protein, Urine 2+ (Neg); Specific Gravity, Urine 1.010 (1.003-1.022); Urobilinogen, Urine NORM (Normal)
[2025-05-12 18:24] LABS: Influenza A, PCR NEGATIVE (NEGATIVE); Influenza B, PCR NEGATIVE (NEGATIVE); Resp Syncytial Virus, PCR NEGATIVE (NEGATIVE); SARS-Cov-2 (COVID-19) PCR, MMC NEGATIVE (NEGATIVE)
[2025-05-12] MEDS ORDERED: Piperacillin/Tazobactam Sod 4.5 GM in NS 100 ML IV ONE (20:10)
[2025-05-12] MEDS ORDERED: Vancomycin (Pharmacy Consult) IV PRN (20:10)
[2025-05-12] MEDS ORDERED: NS 1,000 ML IV SCH ×2 (20:35)
[2025-05-12] MEDS ORDERED: Magnesium Hydroxide Conc 10 ML UDC PO PRN (21:15)
[2025-05-12] MEDS ORDERED: Vancomycin (Pharmacy Consult) IV SCH (21:15)
[2025-05-12] MEDS ORDERED: FLU VACC TS2025(65UP)/MF59C/PF 45 MCG/0.5 ML SYRINGE IM SCH (21:20)
[2025-05-12] MEDS ORDERED: LOSA25 PO (22:20)
[2025-05-12 22:46] VITALS: BP 121/63
--- NOTE | 2025-05-12 23:27 | NUR ---
ADMIT SUMMARY: PT ARRIVED ON UNIT VIA GURRNEY WITH CHAPITO KLEIN AND MARISABEL OLSEN. 2 NURSE SKIN PREFORMED AND PICTURES TAKEN. GLASER ORDER PLACED TO REPLACE GLASER. PT STATES THEY BUY THEIR GLASER CATHETERS FROM [employer] AND INSERTS THE GLASER THEMSELVES. GREEN DRAINAGE NOTED COMING FROM [facility]. PT STATES THEY WANT TO KEEP THEIR LEG BAG AND TAKE IT HOME AT DISCHARGE. PT EDUCATED ON KEEPING THE GLASER CLEAN AND NOT REUSING THE LEG BAG.
[2025-05-13] MEDS ORDERED: TRAZ50 PO (00:20)
--- NOTE | 2025-05-13 04:41 | NUR ---
SHIFT SUMMARY: PT WAS AN ADMIT FOR THE ER TONIGHT. PT MEDICATED PER EMAR. PT IS AOX4 AND ABLE TO MAKE NEEDS KNOWN. NO ACUTE CHANGES OVER NIGHT.
[2025-05-13] MEDS ORDERED: NS 250 ML IV PRN (05:30)
[2025-05-13 05:43] VITALS: BP 132/73
[2025-05-13] MEDS ORDERED: Piperacillin/Tazobactam Sod 3.375 GM in NS 100 ML IV SCH (06:00)
[2025-05-13 06:24] LABS: BASOPHILS ABSOLUTE AUTO 0.04 K/mm3 (0.00-0.23); BASOPHILS PERCENT AUTO 0 % (0-2); EOSINOPHILS ABSOLUTE AUTO 0.04 K/mm3 (0.00-0.68); EOSINOPHILS PERCENT AUTO 0 % (0-6); Hematocrit 25.8 % (37.0-53.0); Hemoglobin 8.2 g/dL (13.5-17.5); IMMATURE GRAN ABSOLUTE AUTO 0.04 K/mm3 (0.00-0.10); IMMATURE GRAN PERCENT AUTO 0 % (0-1); IMMATURE RETIC FRACTION 18.80 % (2.3-16.0); LYMPHOCYTES ABSOLUTE AUTO 0.28 K/mm3 (0.84-5.20); LYMPHOCYTES PERCENT AUTO 3 % (21-46); MONOCYTES ABSOLUTE AUTO 0.87 K/mm3 (0.16-1.47); MONOCYTES PERCENT AUTO 9 % (4-13); Mean Corpuscular HGB Conc 31.8 g/dL (31.5-36.5); Mean Corpuscular Volume 105 fL (80-100); NEUTROPHILS ABSOLUTE AUTO 8.26 K/mm3 (1.96-9.15); NEUTROPHILS PERCENT AUTO 87 % (41-73); NRBC ABSOLUTE 0.00 K/mm3 (0.00-0.02); NRBC Auto 0.0 /100 WBC (0.0-0.2); Platelet Count 238 K/mm3 (150-400); RDW Coefficient Variation 13.6 % (11.7-14.2); RDW Standard Deviation 52.5 fL (35.1-46.3); RETIC HGB EQUIVALENT 26.30 pg (28.20-36.60); RETICULOCYTE ABSOLUTE 0.0610 M/mm3 (0.0200-0.1100); RETICULOCYTE COUNT PERCENT 2.47 % (0.50-2.50)
[2025-05-13 07:11] VITALS: BP 106/61
[2025-05-13 07:21] LABS: Ferritin, Serum 55.0 ng/mL (26-388); Total Iron Binding Capacity 219.0 ug/dL (250-450)
[2025-05-13 07:41] LABS: Alanine Aminotransfer (ALT/SGP 16.0 U/L (12-78); Albumin, Blood 2.7 g/dL (3.4-5.0); Albumin/Globulin Ratio 0.7 (0.8-1.8); Anion Gap 10.0 mmol/L (3-11); Aspartate Aminotrans (AST/SGOT 19.0 U/L (12-37); Bilirubin, Total 0.3 mg/dL (0.1-1.0); Blood Urea Nitrogen 20.0 mg/dL (8-24); C-REACTIVE PROTEIN, EXT RANGE 17.0 mg/dL (0.000-0.300); CO2, Blood 23.0 mmol/L (21-32); Calcium, Blood 8.2 mg/dL (8.5-10.1); Chloride, Blood 111.0 mmol/L (98-108); Creatinine, Blood 1.35 mg/dL (0.60-1.20); Globulin, Blood 4.0 g/dL (2.2-4.0); Glucose, Blood 113.0 mg/dL (70-99); Potassium, Blood 3.7 mmol/L (3.5-5.5); Sodium, Blood 140.0 mmol/L (136-145); Total Protein, Blood 6.7 g/dL (6.4-8.2)
[2025-05-13] MEDS ORDERED: THERA-D2000 UNIT PO (07:52)
[2025-05-13] MEDS ORDERED: Cyclobenzaprine5 MG PO (07:55)
[2025-05-13] MEDS ORDERED: ZYRTEC10 M2 PO (07:55)
[2025-05-13] MEDS ORDERED: IRON EC324 MG PO (07:58)
[2025-05-13] MEDS ORDERED: PROLIA60 MG/1 ML SC (08:00)
[2025-05-13] MEDS ORDERED: NS 500 ML IV ONE (08:10)
[2025-05-13] MEDS ORDERED: Lactobacil 2-S.Thermo-Bifido 1 1 Cap PO SCH (09:00)
[2025-05-13 15:29] LABS: BASOPHILS ABSOLUTE AUTO 0.03 K/mm3 (0.00-0.23); BASOPHILS PERCENT AUTO 0 % (0-2); EOSINOPHILS ABSOLUTE AUTO 0.11 K/mm3 (0.00-0.68); EOSINOPHILS PERCENT AUTO 1 % (0-6); Hematocrit 24.4 % (37.0-53.0); Hemoglobin 7.9 g/dL (13.5-17.5); IMMATURE GRAN ABSOLUTE AUTO 0.04 K/mm3 (0.00-0.10); IMMATURE GRAN PERCENT AUTO 0 % (0-1); LYMPHOCYTES ABSOLUTE AUTO 0.44 K/mm3 (0.84-5.20); LYMPHOCYTES PERCENT AUTO 5 % (21-46); MONOCYTES ABSOLUTE AUTO 0.99 K/mm3 (0.16-1.47); MONOCYTES PERCENT AUTO 10 % (4-13); Mean Corpuscular HGB Conc 32.4 g/dL (31.5-36.5); Mean Corpuscular Volume 104 fL (80-100); NEUTROPHILS ABSOLUTE AUTO 7.94 K/mm3 (1.96-9.15); NEUTROPHILS PERCENT AUTO 83 % (41-73); NRBC ABSOLUTE 0.00 K/mm3 (0.00-0.02); NRBC Auto 0.0 /100 WBC (0.0-0.2); Platelet Count 216 K/mm3 (150-400); RDW Coefficient Variation 13.6 % (11.7-14.2); RDW Standard Deviation 52.4 fL (35.1-46.3)
[2025-05-13 16:01] VITALS: BP 106/68
--- NOTE | 2025-05-13 19:31 | NUR ---
SHIFT SUMMARY- PT HAD AN MRI TODAY, MED REC COMPLETED THIS MORNING AND DR HAYWOOD IS AWARE. PT BP HAS BEEN A LITTLE SOFT. PT HAD A STOOL THAT WAS BLACK ANND FORMED. STATED IF HE HAS ANOTHER SEND A SAMPLE TO THE LAB TO TEST FOR GUIACC. BEDSIDE REPORT COMPLETED WITH NIGHT RN, NO S&S OF DISTRESS NOTED AT THE TIME OF REPORT. WOUND CARE ORDERS RECIEVED AND WOUND CARE WAS COMPLETED THIS SHIFT. PT IN BED, CALL LIGHT IN REACH NO S&S OF DISTRESS NOTED.
[2025-05-13 21:02] VITALS: BP 101/64
[2025-05-14 03:35] VITALS: BP 94/59
--- NOTE | 2025-05-14 03:52 | NUR ---
SHIFT SUMMARY: PT IS AOX4 AND ABLE TO MAKE NEEDS KNOWN. PT HAS A GLASER IN PLACE DRAINING WITH GRAVITY. NO ACUTE CHANGES THIS SHIFT. MEDICATED PER EMAR.
--- NOTE | 2025-05-14 07:33 | NUR ---
ASSUMED CARE OF PT- PT LAYING IN BED, CALL LIGHT IN REACH, A LITTLE GROGGY HOWEVER HE STATES HE HAS ONLY HAD SIX HOURS OF SLEEP IN THE LAST 2 DAYS. HE HAD AN EPISODE OF BLACK STOOL YESTERDAY, BUT HE TAKES AN IRON SUPPLEMENT. HGB WAS LOW 8.4 YESTERDAY DOWN TO 8.2, PRN GUIAC ORDERED FOR NEXT STOOL IF ANOTHER BLACK STOOL OCCURS. THIS AM THE PT APPEARS PALE, (MORE THAN YESTERDAY), HE DENIES ANY CHEST PAIN OR SHORTNESS OF BREATH, VITALS REVEAL A LOW BP AT 0330 THIS AM. RECHECK SHOWS 130'S/70'S THIS AM. LUNG SOUNDS CLEAR IN ALL ROSADO. LABS JUST DRAWN, LAST HGB 7.9.
[2025-05-14 07:39] VITALS: BP 131/70
[2025-05-14 07:43] LABS: BASOPHILS ABSOLUTE AUTO 0.04 K/mm3 (0.00-0.23); BASOPHILS PERCENT AUTO 1 % (0-2); EOSINOPHILS ABSOLUTE AUTO 0.22 K/mm3 (0.00-0.68); EOSINOPHILS PERCENT AUTO 3 % (0-6); Hematocrit 24.3 % (37.0-53.0); Hemoglobin 7.5 g/dL (13.5-17.5); IMMATURE GRAN ABSOLUTE AUTO 0.01 K/mm3 (0.00-0.10); IMMATURE GRAN PERCENT AUTO 0 % (0-1); LYMPHOCYTES ABSOLUTE AUTO 0.69 K/mm3 (0.84-5.20); LYMPHOCYTES PERCENT AUTO 10 % (21-46); MONOCYTES ABSOLUTE AUTO 0.70 K/mm3 (0.16-1.47); MONOCYTES PERCENT AUTO 10 % (4-13); Mean Corpuscular HGB Conc 30.9 g/dL (31.5-36.5); Mean Corpuscular Volume 105 fL (80-100); NEUTROPHILS ABSOLUTE AUTO 5.19 K/mm3 (1.96-9.15); NEUTROPHILS PERCENT AUTO 76 % (41-73); NRBC ABSOLUTE 0.00 K/mm3 (0.00-0.02); NRBC Auto 0.0 /100 WBC (0.0-0.2); Platelet Count 225 K/mm3 (150-400); RDW Coefficient Variation 13.7 % (11.7-14.2); RDW Standard Deviation 53.1 fL (35.1-46.3)
[2025-05-14 08:07] LABS: Alanine Aminotransfer (ALT/SGP 17.0 U/L (12-78); Albumin, Blood 2.4 g/dL (3.4-5.0); Albumin/Globulin Ratio 0.6 (0.8-1.8); Anion Gap 8.0 mmol/L (3-11); Aspartate Aminotrans (AST/SGOT 24.0 U/L (12-37); Bilirubin, Total 0.2 mg/dL (0.1-1.0); Blood Urea Nitrogen 15.0 mg/dL (8-24); CO2, Blood 25.0 mmol/L (21-32); Calcium, Blood 8.2 mg/dL (8.5-10.1); Chloride, Blood 113.0 mmol/L (98-108); Creatinine, Blood 1.44 mg/dL (0.60-1.20); Globulin, Blood 4.2 g/dL (2.2-4.0); Glucose, Blood 99.0 mg/dL (70-99); Potassium, Blood 3.6 mmol/L (3.5-5.5); Sodium, Blood 142.0 mmol/L (136-145); Total Protein, Blood 6.6 g/dL (6.4-8.2)
[2025-05-14 13:51] LABS: Hematocrit 25.2 % (37.0-53.0); Hemoglobin 7.8 g/dL (13.5-17.5)
[2025-05-14 17:30] VITALS: BP 144/82
[2025-05-14 17:55] VITALS: BP 144/82
--- NOTE | 2025-05-14 17:57 | NUR ---
SHIFT SUMMARY- PT IS ALERT AND ORIENTED. HE IS NOT ABLE TO TELL WHEN HE HAS HAD A BM, SO HE HAS BEEN CHECKED T/O THE SHIFT. WOUND CARE DRESSING CHANGE WAS COMPLETED. PT HAS HAD NO STOOL THIS SHIFT. HE REFUSED TO TAKE THE SENNA STATING THAT HE WILL "POOP FOR DAYS." DR AWARE HE DID NOT TAKE THIS MED. PT HGB WAS 7.9 LAST NIGHT AND 7.5 THIS AM, RECHECK AROUND NOON SHOWED 7.8. DR PLANNING TO KEEP THE PT TO SEE IF THERE IS A SOURCE OF BLEEDING CAUSING THE LOW HGB. PT IS IN BED, CALL LIGHT IN REACH NO S&S OF DISTRESS NOTED. WILL PASS ON TO NIGHT RN IN BEDSIDE REPORT. DR STARTED PT ON PROTONIX TODAY.
[2025-05-14 20:31] VITALS: BP 125/73
[2025-05-15 05:27] VITALS: BP 121/83
[2025-05-15 06:15] LABS: BASOPHILS ABSOLUTE AUTO 0.03 K/mm3 (0.00-0.23); BASOPHILS PERCENT AUTO 1 % (0-2); EOSINOPHILS ABSOLUTE AUTO 0.27 K/mm3 (0.00-0.68); EOSINOPHILS PERCENT AUTO 5 % (0-6); Hematocrit 23.3 % (37.0-53.0); Hemoglobin 7.3 g/dL (13.5-17.5); IMMATURE GRAN ABSOLUTE AUTO 0.03 K/mm3 (0.00-0.10); IMMATURE GRAN PERCENT AUTO 1 % (0-1); LYMPHOCYTES ABSOLUTE AUTO 0.65 K/mm3 (0.84-5.20); LYMPHOCYTES PERCENT AUTO 13 % (21-46); MONOCYTES ABSOLUTE AUTO 0.54 K/mm3 (0.16-1.47); MONOCYTES PERCENT AUTO 11 % (4-13); Mean Corpuscular HGB Conc 31.3 g/dL (31.5-36.5); Mean Corpuscular Volume 104 fL (80-100); NEUTROPHILS ABSOLUTE AUTO 3.47 K/mm3 (1.96-9.15); NEUTROPHILS PERCENT AUTO 70 % (41-73); NRBC ABSOLUTE 0.00 K/mm3 (0.00-0.02); NRBC Auto 0.0 /100 WBC (0.0-0.2); Platelet Count 255 K/mm3 (150-400); RDW Coefficient Variation 13.9 % (11.7-14.2); RDW Standard Deviation 52.8 fL (35.1-46.3)
[2025-05-15 08:18] VITALS: BP 140/75
[2025-05-15 09:04] LABS: Alanine Aminotransfer (ALT/SGP 20.0 U/L (12-78); Albumin, Blood 2.3 g/dL (3.4-5.0); Albumin/Globulin Ratio 0.5 (0.8-1.8); Anion Gap 16.0 mmol/L (3-11); Aspartate Aminotrans (AST/SGOT 31.0 U/L (12-37); Bilirubin, Total 0.2 mg/dL (0.1-1.0); Blood Urea Nitrogen 14.0 mg/dL (8-24); CO2, Blood 23.0 mmol/L (21-32); Calcium, Blood 8.8 mg/dL (8.5-10.1); Chloride, Blood 109.0 mmol/L (98-108); Creatinine, Blood 1.4 mg/dL (0.60-1.20); Globulin, Blood 4.2 g/dL (2.2-4.0); Glucose, Blood 99.0 mg/dL (70-99); Potassium, Blood 3.8 mmol/L (3.5-5.5); Sodium, Blood 144.0 mmol/L (136-145); Total Protein, Blood 6.5 g/dL (6.4-8.2)
[2025-05-15 09:11] VITALS: BP 145/79
[2025-05-15 12:00] LABS: Stool Occult Blood Guaiac 1 Pos (Neg)
[2025-05-15 12:31] LABS: Hematocrit 24.4 % (37.0-53.0); Hemoglobin 7.8 g/dL (13.5-17.5)
--- NOTE | 2025-05-15 12:49 | NUR ---
PT HAD A BM- SAMPLE SENT TO THE LAB POSSITIVE FOR GUIAC. CALLED DR KINNEY. HE IS AWARE. BLOOD TRANSFUSION WILL BE ORDERED WELL CONSULT TO GI.
--- NOTE | 2025-05-15 12:50 | NUR ---
CALLED [employer]- PT WRIST IV IS VERY UNCOMFORTABLE, REQUESTED PG PLACEMENT FOR BLOOD TRANSFUSION AND POSSIBLE PROCEDURE IN THE NEXT DAY OR SO, WELL THE IV ABX. CHARGE WILL PLACE THE PG SHORTLY. ABX POSTPONED AT THIS TIME.
[2025-05-15 17:08] VITALS: BP 127/59
--- NOTE | 2025-05-15 18:25 | NUR ---
SHIFT SUMMARY- CALLED DR KINNEY. PT HAS CONTINUED TO HAVE BLACK TARRY STOOLS. HAD SPOKE ABOUT A GI CONSULT, BUT THERE WAS NOT YET AN ORDER. CALLED TO CLARIFY, HE STATED HE SPOKE TO DR JAIME AND HE WILL COME TO SEE THE PT TONIGHT. ORDER PLACED IN ORDER MANAGEMENT FOR GI CONSULT NOTING DR SPOKE TO MD. PT IS IN BED, CALL LIGHT IN REACH. HE HAS BEEN HAVING A LOT OF STOOL PRODUCTION, WOUND CARE WAS COMPLETED HOWEVER THE PT HAS HAD FREQUENT BLACK TARRY STOOL THAT HAVE GOTTEN INTO HIS WOUND DRESSINGS. AT THIS TIME THE AREA WAS RECENTLY CLEANED AND DRIED AND HAD A MEPILEX PLACED OVER IT, BUT THERE IS NO ALGENATE PACKING AT THIS TIME. PT IS AWARE OF THE PLAN FOR CONSULT, PT HAS IV ABX ORDERED FOR UTI. NEXT DOSE TO RUN AT 1900. PT NOW HAS A PG IN THE TABITHA THAT DRAWS WELL. IT WAS PLACED WHEN ACCESS BECAME PAINFUL AND THERE WAS TALK OF POSSIBLE SURGERY AND POSSIBLE BLOOD TRANSFUSION. PT HAS NO NPO ORDERS AT THIS TIME. HGB WENT UP TO 7.8 ON RECHECK. WILL PASS ON IN BEDSIDE REPORT TO NIGHT RN, NO CURRENT S&S OF DISTRESS NOTED.
[2025-05-15 20:08] VITALS: BP 131/78
[2025-05-16] VITALS (9 sets, daily range): BP systolic 113–143; BP diastolic 62–81
--- NOTE | 2025-05-16 01:32 | NUR ---
CALLED TO ROOM SECONDARY TO POWERGLIDE NOT DRAWING OR FLUSHING. DRESSING REMOVED AND DRESSING CHANGE DONE IN STERILE FASHION PER PROTOCOL. DID REQUIRE WITHDRAWNING POWERGLIDE 2 CM WHICH IN TURN HAD VERY GOOD BLOOD RETURN AND FLUSHES EASILY. PT TOLERATED THIS PROCEDURE WELL. UPDATE GIVEN TO PRIMARY RN.
--- NOTE | 2025-05-16 05:06 | NUR ---
Shift Summary AOx4, SAVOONGA. Patient has what appears to be prolapsed rectum. Positive for neurogenic bowels, pt does digital stimulation to move bowels. Dressing to coccyx changed this morning because it was soiled, pt had 1 liquidy small bm. Feels full with little intake. Medicated x 1 for generalized and chronic pain with good effect. Gave some tums for indigestion, otherwise, uneventful night.
--- NOTE | 2025-05-16 06:05 | NUR ---
CBC & BMP ORDERED ABOVE LABS HAVE NOT BEEN ORDERED FOR TODAY. PT HAS + GUAIAC AND H/H HAS BEEN TRENDING DOWN. RECEIVED T.O. FROM DR. ANAYA HEAD FOR BOTH ORDERS ABOVE.
[2025-05-16 07:00] LABS: BASOPHILS ABSOLUTE AUTO 0.04 K/mm3 (0.00-0.23); BASOPHILS PERCENT AUTO 1 % (0-2); EOSINOPHILS ABSOLUTE AUTO 0.33 K/mm3 (0.00-0.68); EOSINOPHILS PERCENT AUTO 7 % (0-6); Hematocrit 23.8 % (37.0-53.0); Hemoglobin 7.6 g/dL (13.5-17.5); IMMATURE GRAN ABSOLUTE AUTO 0.01 K/mm3 (0.00-0.10); IMMATURE GRAN PERCENT AUTO 0 % (0-1); LYMPHOCYTES ABSOLUTE AUTO 0.89 K/mm3 (0.84-5.20); LYMPHOCYTES PERCENT AUTO 18 % (21-46); MONOCYTES ABSOLUTE AUTO 0.45 K/mm3 (0.16-1.47); MONOCYTES PERCENT AUTO 9 % (4-13); Mean Corpuscular HGB Conc 31.9 g/dL (31.5-36.5); Mean Corpuscular Volume 105 fL (80-100); NEUTROPHILS ABSOLUTE AUTO 3.37 K/mm3 (1.96-9.15); NEUTROPHILS PERCENT AUTO 66 % (41-73); NRBC ABSOLUTE 0.00 K/mm3 (0.00-0.02); NRBC Auto 0.0 /100 WBC (0.0-0.2); Platelet Count 265 K/mm3 (150-400); RDW Coefficient Variation 14.2 % (11.7-14.2); RDW Standard Deviation 54.4 fL (35.1-46.3)
[2025-05-16 07:23] LABS: Anion Gap 8.0 mmol/L (3-11); Blood Urea Nitrogen 12.0 mg/dL (8-24); CO2, Blood 27.0 mmol/L (21-32); Calcium, Blood 8.2 mg/dL (8.5-10.1); Chloride, Blood 112.0 mmol/L (98-108); Creatinine, Blood 1.34 mg/dL (0.60-1.20); Glucose, Blood 96.0 mg/dL (70-99); Potassium, Blood 3.6 mmol/L (3.5-5.5); Sodium, Blood 143.0 mmol/L (136-145)
[2025-05-16] MEDS ORDERED: NS 500 ML IV SCH (13:15)
--- NOTE | 2025-05-16 15:40 | NUR ---
NOTE PT HBG 7.6. DR. KINNEY ORDERED ONE UNIT OF BLOOD FOR PT. BREAK RN EDUCATED PT ON TRANSFUSION REACTION. THIS RN TOOK PRE TRANSFUSION VITALS. PT BLOOD PRESSURE 124/68. PULSE 75. PT REPORTS NO CHEST PAIN/SOB. PT REPORTS GENERALIZED PAIN CHRONIC. BREAK RN VERIFIED BLOOD W ARCHITECT INTERNSHIP PER BREAK RN REPORT. THIS RN IN ROOM FOR FIRST 15 MINUTES OF TRANSFUSION. PT IN BED, BED IN LOWEST POSIITON, CALL LIGHT IN REACH. BLOOD CONSENT SIGNED.
--- NOTE | 2025-05-16 15:58 | NUR ---
NOTE BLOOD TRANSFUSING AT 125ML/HR. PT REPORTS NO S/S OF REACTION. VSS. LUNGS WHILE HOSPITALIZED BEEN WHEEZY, NO NEW CHANGES. PT IN BED, BED IN LOWEST POSITION, CALL LIGHT IN REACH.
--- NOTE | 2025-05-16 19:32 | NUR ---
Diet Order: NPO Acknowledged Nurse Notify Order to keep patient NPO at midnight for EGD in the morning 05/17. Diet order changed from Reg to NPO.
--- NOTE | 2025-05-16 19:38 | NUR ---
SHIFT SUMMARY PT A&OX4. PT ADMITTED DUE TO SEPSIS. PT GOT IV ANTIBIOTIC. PT REPORTS CHRONIC PAIN. PT REPORTS NO CHEST PAIN/SOB. PT GOT ONE UNIT OF PRBC TODAY. BLOOD CONSENT SIGNED. VSS.NO S/S OF TRANSFUSION REACTION NOTED. PT HAD LIQUIDY/PASTEY BLACK STOOLS MULTIPLE TIMES TODAY. PT REPORTS INDEGESTION, NEDICATED X1 WITH TUMS, DR. PIRES ROUNDED ON PT REPORTED WILL DO SCOPE TOMORROW, PT NPO AT MIDNIGHT NOTIFIED NIGHT RN. PT HAS CHRONIC GLASER, DRAINING ADEQUATE WITH NO DEPENDENT LOOPS. WOUND CARE ORDERED. PT IN BED, BED IN LOWEST POSITION, CALL LIGHT IN REACH,.
[2025-05-17] VITALS (7 sets, daily range): BP systolic 98–141; BP diastolic 58–76
--- NOTE | 2025-05-17 06:19 | NUR ---
Shift Summary Patient has had multiple red-tinged small & loose dark bowel movements. Stayed NPO since midnight in anticipation of EGD today. Medicated for generalized aches w/ tylenol, okay effect. Did not sleep very well. Changed and cleansed coccyx wound multiple times tonight. No other changes.
[2025-05-17 06:44] LABS: BASOPHILS ABSOLUTE AUTO 0.06 K/mm3 (0.00-0.23); BASOPHILS PERCENT AUTO 1 % (0-2); EOSINOPHILS ABSOLUTE AUTO 0.43 K/mm3 (0.00-0.68); EOSINOPHILS PERCENT AUTO 7 % (0-6); Hematocrit 29.7 % (37.0-53.0); Hemoglobin 9.5 g/dL (13.5-17.5); IMMATURE GRAN ABSOLUTE AUTO 0.02 K/mm3 (0.00-0.10); IMMATURE GRAN PERCENT AUTO 0 % (0-1); LYMPHOCYTES ABSOLUTE AUTO 0.82 K/mm3 (0.84-5.20); LYMPHOCYTES PERCENT AUTO 14 % (21-46); MONOCYTES ABSOLUTE AUTO 0.45 K/mm3 (0.16-1.47); MONOCYTES PERCENT AUTO 8 % (4-13); Mean Corpuscular HGB Conc 32.0 g/dL (31.5-36.5); Mean Corpuscular Volume 103 fL (80-100); NEUTROPHILS ABSOLUTE AUTO 4.16 K/mm3 (1.96-9.15); NEUTROPHILS PERCENT AUTO 70 % (41-73); NRBC ABSOLUTE 0.00 K/mm3 (0.00-0.02); NRBC Auto 0.0 /100 WBC (0.0-0.2); Platelet Count 321 K/mm3 (150-400); RDW Coefficient Variation 15.0 % (11.7-14.2); RDW Standard Deviation 57.1 fL (35.1-46.3)
[2025-05-17 07:04] LABS: Alanine Aminotransfer (ALT/SGP 26.0 U/L (12-78); Albumin, Blood 2.7 g/dL (3.4-5.0); Albumin/Globulin Ratio 0.6 (0.8-1.8); Anion Gap 8.0 mmol/L (3-11); Aspartate Aminotrans (AST/SGOT 32.0 U/L (12-37); Bilirubin, Total 0.4 mg/dL (0.1-1.0); Blood Urea Nitrogen 13.0 mg/dL (8-24); C-REACTIVE PROTEIN, EXT RANGE 3.79 mg/dL (0.000-0.300); CO2, Blood 28.0 mmol/L (21-32); Calcium, Blood 8.7 mg/dL (8.5-10.1); Chloride, Blood 111.0 mmol/L (98-108); Creatinine, Blood 1.35 mg/dL (0.60-1.20); Globulin, Blood 4.5 g/dL (2.2-4.0); Glucose, Blood 81.0 mg/dL (70-99); Magnesium, Blood 1.9 mg/dL (1.6-2.4); Potassium, Blood 3.6 mmol/L (3.5-5.5); Sodium, Blood 143.0 mmol/L (136-145); Total Protein, Blood 7.2 g/dL (6.4-8.2)
--- NOTE | 2025-05-17 08:03 | NUR ---
NOTE THIS RN SPOKE WITH DAY SURGERY. DAY SURGERY REPORTED "PT NOT ON THEIR LIST BUT DR. PIRES REPORTED ADDING A FEW MORE CASES TODAY." NIGHT RN REPORTED PT NPO SINCE MIDNIGHT. DAY SURG NURSE REPORTED, "HOLD ALL MEDS, BUT GIVE METOPROLOL."
[2025-05-17] MEDS ORDERED: Albuterol 2.5 MG/3 ML VIAL INH PRN (11:05)
[2025-05-17] MEDS ORDERED: Ondansetron HCl 2 MG / ML 2ML Vial IV PRN (11:10)
--- NOTE | 2025-05-17 11:27 | NUR ---
NOTE PT TRANSPORTED TO DAY SURG FOR UPPER ENDOSCOPY. USED SLIDER SHEET TO TRANSPORT PT TO OR BED. PT UN HOOKED FROM SCD'S, IV SALINE LOCKED. PT REPORTS "NOT NEEDING TO HAVE ATTENDS CHANGED." SENT NOON ANTIBIOTIC WITH PT. PT LEFT HEARING AIDS AND DENTURES IN ROOM AND JEWELERY WITH .
--- NOTE | 2025-05-17 12:03 | NUR ---
PRE PROCEDURE NOTE PT TO DSU IN STRETCHER. PT A&OX4, BREATHING RA, VSS. PT C/O PAIN IN R HIP 2/ "HAIRLINE FRACTURE," PT STATES PAIN LEVEL IS CURRENTLY AT BASELINE 11/29. PT HAS GLASER CATHETER DRAINING CLEAR YELLOW URINE. Patient confirms NPO status and agrees with scheduled surgery. PT DOES NOT AMBULATE AT BASELINE. AT BEDSIDE. Pre-Op teaching done. Pt verbalizes understanding.
--- NOTE | 2025-05-17 12:27 | NUR ---
05/17/25 1227 Lory Rogers MONITOR INTACT WITH CONTINUOUS PULSE OXIMETRY, CONTINUOUS END TITAL CO2, 3-LEAD EKG AND INTERMITTENT BLOOD PRESSURE.
--- NOTE | 2025-05-17 13:09 | NUR ---
NOTE PT BACK FROM OR. IN ROOM, KATIE LIGHT IN REACH
--- NOTE | 2025-05-17 18:15 | NUR ---
SHIFT SUMMARY PT A&OX4. PT ADMITTED DUE TO SEPSIS. PT GOT IV ANTIBIOTIC. PT REPORTS CHRONIC PAIN, MANAGED PER EMAR. PT REPORTS NO CHEST PAIN/SOB. VSS. PT REPORTS NO INDEGESTION TODAY. DR. PIRES DID UPPER SCOPE TODAY. PT NOW EATING ADEQUATE POST PROCEDURE. PT HAS CHRONIC GLASER, DRAINING ADEQUATE WITH NO DEPENDENT LOOPS. WOUND CARE ORDERED, PT IN BED, BED IN LOWEST POSITION, CALL LIGHT IN REACH. SIDE RAILS UP X2. PT ON ROOM AIR.
--- NOTE | 2025-05-18 00:38 | NUR ---
Midshift Summary Care handed off to Katia Stewart RN. AOx4. Dressing to coccyx changed x1 so far this shift. Tums for indigestion x 1 with good effect. Mendoza intact and draining to gravity, yellow urine. Denies the need for tylenol at this time. Offloads self w/ repositions in bed. No acute changes. Care relinquished.
--- NOTE | 2025-05-18 01:36 | NUR ---
ASSUMPTION OF CARE: THIS RN ASSUMED CARE OF PATIENT, OVERSEEING CARE OF ORIENTING RNTAWANDA. AWAKE DURING HAND-OFF REPORT, HAVING JUST RECEIVED MEDS FROM KAREEN NEFF. BREATHING EVEN AND UNLABORED c ROOM AIR. GLASER PATENT AND DRAINING URINE TO GRAVITY. BED IN LOWEST POSITION. CALL LIGHT WITHIN REACH. ACUTE NEEDS MET.
--- NOTE | 2025-05-18 03:30 | NUR ---
ASSUMPTION OF CARE: REPORT RECEIVED FROM KAREEN BRUNO. PATIENT MADE AWARE OF HAND OFF. PATIENT A/OX4, DENIES ANY NEEDS AT THIS TIME AND CALL LIGHT WITHIN REACH.
[2025-05-18 04:26] VITALS: BP 123/59
--- NOTE | 2025-05-18 05:57 | NUR ---
PATIENT A/OX4, ABLE TO REPOSITION SELF IN BED. 3 DARK BROWN INCONTINENT STOOLS THIS SHIFT. PATIENT CONTINUES ON ZOSYN TO TREAT UTI. GLASER PATENT AND DRAINING TO GRAVTY. VSS, ON RA. POWERGLIDE TO TABITHA, REDRESSED THIS AM AND FLUSHES WELL. PLEASANT AND COOPERATIVE WITH CARE, CALLS APPROPRIATELY FOR ASSISTANCE.
[2025-05-18 06:31] LABS: BASOPHILS ABSOLUTE AUTO 0.05 K/mm3 (0.00-0.23); BASOPHILS PERCENT AUTO 1 % (0-2); EOSINOPHILS ABSOLUTE AUTO 0.28 K/mm3 (0.00-0.68); EOSINOPHILS PERCENT AUTO 5 % (0-6); Hematocrit 29.5 % (37.0-53.0); Hemoglobin 9.4 g/dL (13.5-17.5); IMMATURE GRAN ABSOLUTE AUTO 0.02 K/mm3 (0.00-0.10); IMMATURE GRAN PERCENT AUTO 0 % (0-1); LYMPHOCYTES ABSOLUTE AUTO 0.62 K/mm3 (0.84-5.20); LYMPHOCYTES PERCENT AUTO 10 % (21-46); MONOCYTES ABSOLUTE AUTO 0.50 K/mm3 (0.16-1.47); MONOCYTES PERCENT AUTO 8 % (4-13); Mean Corpuscular HGB Conc 31.9 g/dL (31.5-36.5); Mean Corpuscular Volume 101 fL (80-100); NEUTROPHILS ABSOLUTE AUTO 4.47 K/mm3 (1.96-9.15); NEUTROPHILS PERCENT AUTO 75 % (41-73); NRBC ABSOLUTE 0.00 K/mm3 (0.00-0.02); NRBC Auto 0.0 /100 WBC (0.0-0.2); Platelet Count 316 K/mm3 (150-400); RDW Coefficient Variation 14.6 % (11.7-14.2); RDW Standard Deviation 55.0 fL (35.1-46.3)
[2025-05-18 07:06] LABS: Alanine Aminotransfer (ALT/SGP 27.0 U/L (12-78); Albumin, Blood 2.6 g/dL (3.4-5.0); Albumin/Globulin Ratio 0.6 (0.8-1.8); Anion Gap 6.0 mmol/L (3-11); Aspartate Aminotrans (AST/SGOT 31.0 U/L (12-37); Bilirubin, Total 0.3 mg/dL (0.1-1.0); Blood Urea Nitrogen 11.0 mg/dL (8-24); CO2, Blood 27.0 mmol/L (21-32); Calcium, Blood 9.0 mg/dL (8.5-10.1); Chloride, Blood 111.0 mmol/L (98-108); Creatinine, Blood 1.49 mg/dL (0.60-1.20); Globulin, Blood 4.3 g/dL (2.2-4.0); Glucose, Blood 91.0 mg/dL (70-99); Potassium, Blood 3.4 mmol/L (3.5-5.5); Sodium, Blood 141.0 mmol/L (136-145); Total Protein, Blood 6.9 g/dL (6.4-8.2)
[2025-05-18 07:15] VITALS: BP 141/59
[2025-05-18 15:42] VITALS: BP 149/79
--- NOTE | 2025-05-18 16:41 | NUR ---
ASSUMED CARE. VERY PLEASENT PT, A/O X 4 CALL LIGHT WITHIN REACH MAKES NEEDS KNOWN. GLASER DRAINING CLEAR YELLOW, WOUND TO COCCYX COVERED WITH MEPILEX. WILL CONT TO MONITOR.
--- NOTE | 2025-05-18 16:43 | NUR ---
ASSISTED OUT OF BED TO BSC, PT WAS ABLE TO TRANSFER TO BSC WITH MINIMAL ASSIST THOUGH HE ISNT ABLE TO MOVE LOWER EXTREMITIES. PT HAD SMALL LOOSE STOOL WITH NOT SIGN OF BLEEDING. VERY LARGE HEMORRHOIDS NOTED. PT STATES THAT HE DISIMPACTS HIMSELF DAILY AND IS AWARE.
[2025-05-18 20:13] VITALS: BP 128/78
--- NOTE | 2025-05-19 01:05 | NUR ---
MIDLINE CATHETER INFILTRATED DIONI COMPLETED, PT REQUESTING TO BE UNHOOKED SO "I DON'T HAVE TO KEEP MY ARM STRAIGHT ALL THE TIME." UPON ASSESSMENT, GREATER THAN 2CM OF CATHETER IS OUT AND COILED UNDERNEATH CHG PAD OF DRESSING. PATIENT'S L ARM IS COOL TO THE TOUCH. SWELLING EXTENDS FROM AXILLA TO THE WRIST, GREATER ON MEDIAL ASPECT OF ARM. PT DENIES PAIN, TENDERNESS. CAP REFILL LESS THAN 3 SECONDS. THIS RN PRESENTLY BREAKING PRIMARY RN FOR LUNCH. AT THIS POINT, RONN Joiner (PRIMARY RN) HAS RETURNED FROM LUNCH. BOTH CHARGES MADE AWARE. PRESENT EVENT AND CARE HANDED BACK TO KAREEN BRODY.
--- NOTE | 2025-05-19 04:01 | NUR ---
SHIFT SUMMARY PATIENT HAD NO ACUTE CHANGES. ALERT ORIENTED AND PARAPLEGIA WITH ONE ASSIST TO BSC. DENIES CHEST PAIN, SOB, AND N/V. VSS/AFEBRILE. GLASER PATENT AND DRAINING TO GRAVITY. IV ABX INFUSED. WATCHED TV FIRST HALF OF SHIFT. CALL LIGHT IN REACH. BED IN LOWEST POSITION. WILL CONTINUE TO MONITOR UNTIL DAY SHIFT NURSE ASSUMES CARE.
[2025-05-19 04:31] VITALS: BP 145/80
[2025-05-19 05:45] LABS: BASOPHILS ABSOLUTE AUTO 0.06 K/mm3 (0.00-0.23); BASOPHILS PERCENT AUTO 1 % (0-2); EOSINOPHILS ABSOLUTE AUTO 0.29 K/mm3 (0.00-0.68); EOSINOPHILS PERCENT AUTO 4 % (0-6); Hematocrit 29.9 % (37.0-53.0); Hemoglobin 9.5 g/dL (13.5-17.5); IMMATURE GRAN ABSOLUTE AUTO 0.03 K/mm3 (0.00-0.10); IMMATURE GRAN PERCENT AUTO 0 % (0-1); LYMPHOCYTES ABSOLUTE AUTO 0.86 K/mm3 (0.84-5.20); LYMPHOCYTES PERCENT AUTO 13 % (21-46); MONOCYTES ABSOLUTE AUTO 0.75 K/mm3 (0.16-1.47); MONOCYTES PERCENT AUTO 11 % (4-13); Mean Corpuscular HGB Conc 31.8 g/dL (31.5-36.5); Mean Corpuscular Volume 101 fL (80-100); NEUTROPHILS ABSOLUTE AUTO 4.69 K/mm3 (1.96-9.15); NEUTROPHILS PERCENT AUTO 70 % (41-73); NRBC ABSOLUTE 0.00 K/mm3 (0.00-0.02); NRBC Auto 0.0 /100 WBC (0.0-0.2); Platelet Count 343 K/mm3 (150-400); RDW Coefficient Variation 14.4 % (11.7-14.2); RDW Standard Deviation 53.0 fL (35.1-46.3)
[2025-05-19 06:15] LABS: Alanine Aminotransfer (ALT/SGP 30.0 U/L (12-78); Albumin, Blood 2.6 g/dL (3.4-5.0); Albumin/Globulin Ratio 0.6 (0.8-1.8); Anion Gap 7.0 mmol/L (3-11); Aspartate Aminotrans (AST/SGOT 37.0 U/L (12-37); Bilirubin, Total 0.2 mg/dL (0.1-1.0); Blood Urea Nitrogen 13.0 mg/dL (8-24); CO2, Blood 27.0 mmol/L (21-32); Calcium, Blood 8.9 mg/dL (8.5-10.1); Chloride, Blood 109.0 mmol/L (98-108); Creatinine, Blood 1.39 mg/dL (0.60-1.20); Globulin, Blood 4.0 g/dL (2.2-4.0); Glucose, Blood 94.0 mg/dL (70-99); Potassium, Blood 3.5 mmol/L (3.5-5.5); Sodium, Blood 139.0 mmol/L (136-145); Total Protein, Blood 6.6 g/dL (6.4-8.2)
[2025-05-19 08:01] VITALS: BP 160/71
[2025-05-19] MEDS ORDERED: AMOCLA875 PO (13:22)
[2025-05-19] MEDS ORDERED: CIPR500 PO (13:28)
--- NOTE | 2025-05-19 15:37 | NUR ---
DISCHAGE INSTRUCTION GIVEN GLASER BAG CHANGED TO PERSONAL HOME BAG. PT INDEPENDANT AND WAS ABLE TO GET SELF READY FOR DISCHARGE. TAKEN VIA WHEELCHAIR
== END 2025-05-19 14:00 | disposition home or self-care (01) | DRG 698 ==
LOC: ER 17:03 → MEDS 21:12 → SURS 21:12 → MEDS 22:38
PROVIDERS: Emergency Medicine; Family Medicine; Internal Medicine; Student in an Organized Health Care Education/Training Program; Surgery; ADMIT Student in an Organized Health Care Education/Training Program
PROC: 30233N1 Transfusion of Nonautologous Red Blood Cells into Peripheral Vein, Percutaneous Approach (ICD-10-PCS; 2025-05-12)
PROC: 3E03329 Introduction of Other Anti-infective into Peripheral Vein, Percutaneous Approach (ICD-10-PCS; 2025-05-12)
PROC: 0DJ08ZZ Inspection of Upper Intestinal Tract, Via Natural or Artificial Opening Endoscopic (ICD-10-PCS; principal; 2025-05-17 12:00)
DX: T83.511A Infection and inflammatory reaction due to indwelling urethral catheter, initial encounter (principal); A41.9 Sepsis, unspecified organism; G82.20 Paraplegia, unspecified; K92.1 Melena; D62 Acute posthemorrhagic anemia; N17.9 Acute kidney failure, unspecified; I47.19 Other supraventricular tachycardia; Y84.6 Urinary catheterization as the cause of abnormal reaction of the patient, or of later complication, without mention of misadventure at the time of the procedure; I25.10 Atherosclerotic heart disease of native coronary artery without angina pectoris; T45.525A Adverse effect of antithrombotic drugs, initial encounter; G83.10 Monoplegia of lower limb affecting unspecified side; I12.9 Hypertensive chronic kidney disease with stage 1 through stage 4 chronic kidney disease, or unspecified chronic kidney disease; N18.31 Chronic kidney disease, stage 3a; M81.0 Age-related osteoporosis without current pathological fracture; E55.9 Vitamin D deficiency, unspecified; K21.9 Gastro-esophageal reflux disease without esophagitis; L89.159 Pressure ulcer of sacral region, unspecified stage; E78.5 Hyperlipidemia, unspecified; D53.9 Nutritional anemia, unspecified; K59.09 Other constipation; Q27.39 Arteriovenous malformation, other site; I25.2 Old myocardial infarction; Z79.82 Long term (current) use of aspirin; Z79.02 Long term (current) use of antithrombotics/antiplatelets; Z79.899 Other long term (current) drug therapy; Z95.5 Presence of coronary angioplasty implant and graft; K64.4 Residual hemorrhoidal skin tags; Z87.891 Personal history of nicotine dependence; Z98.1 Arthrodesis status; Z89.021 Acquired absence of right finger(s); Z98.890 Other specified postprocedural states
CPT/HCPCS: 36415; 36430; 71045; 72197; 74177; 80048; 80053; 81001; 82270; 82607; 82728; 82746; 83540; 83550; 83605; 83735; 84100; 85014; 85018; 85025; 85045; 86140; 86850; 86900; 86901; 86923; 87040; 87077; 87086; 87186; 87637; 93005; 93010; 94760; 96361; 96365-59; 99285-25; A9270; A9579; J2543; J2704; J3373; J7030; J7040; J7050; J7120; P9016; Q9967

== ENCOUNTER 2025-06-10 04:19 | Day surgery (SDC) | payer MEDICARE, BC ==
[~2025-06-10 04:19] MED LIST changes: +AMOCLA875 PO; +CIPR500 PO; +Cyclobenzaprine5 MG PO; +IRON EC324 MG PO; +LOSA25 PO; +PROLIA60 MG/1 ML SC; +THERA-D2000 UNIT PO; +TRAZ50 PO; +ZYRTEC10 M2 PO
== END 2025-06-10 23:20 | disposition home or self-care (01) ==
LOC: WOUND 04:19
DX: L89.154 Pressure ulcer of sacral region, stage 4 (principal); G82.22 Paraplegia, incomplete

== ENCOUNTER 2025-06-17 01:05 | Day surgery (SDC) | payer MEDICARE, BC | END 2025-06-17 23:00 | disposition home or self-care (01) | LOC: WOUND 01:05 | DX: L89.154 Pressure ulcer of sacral region, stage 4 (principal); G82.22 Paraplegia, incomplete; I25.2 Old myocardial infarction | CPT/HCPCS: A6213 ==

== ENCOUNTER 2025-06-24 00:39 | Day surgery (SDC) | payer MEDICARE, BC | END 2025-06-24 23:00 | disposition home or self-care (01) | LOC: WOUND 00:39 | DX: L89.154 Pressure ulcer of sacral region, stage 4 (principal); G82.22 Paraplegia, incomplete; I25.2 Old myocardial infarction ==

== ENCOUNTER 2025-07-01 00:25 | Day surgery (SDC) | payer MEDICARE, BC | END 2025-07-01 23:06 | disposition home or self-care (01) | LOC: WOUND 00:25 | DX: L89.154 Pressure ulcer of sacral region, stage 4 (principal); G82.20 Paraplegia, unspecified; I10 Essential (primary) hypertension; I25.10 Atherosclerotic heart disease of native coronary artery without angina pectoris; I50.9 Heart failure, unspecified ==

== ENCOUNTER 2025-07-08 00:56 | Day surgery (SDC) | payer MEDICARE, BC | END 2025-07-08 22:00 | disposition home or self-care (01) | LOC: WOUND 00:56 | DX: L89.154 Pressure ulcer of sacral region, stage 4 (principal); G82.22 Paraplegia, incomplete; I25.2 Old myocardial infarction ==

== ENCOUNTER 2025-07-22 07:19 | Day surgery (SDC) | payer MEDICARE, BC | END 2025-07-22 23:23 | disposition home or self-care (01) | LOC: WOUND 07:19 | DX: L89.154 Pressure ulcer of sacral region, stage 4 (principal); G82.20 Paraplegia, unspecified | CPT/HCPCS: A6196 ==

== ENCOUNTER → 2025-07-26 | Outpatient (CLI) | payer MEDICARE, BC | LOC: LAB 17:46 → LAB SHORT 17:46 | DX: N39.0 Urinary tract infection, site not specified (principal) | CPT/HCPCS: 87086 ==

== ENCOUNTER 2025-07-29 02:39 | Day surgery (SDC) | payer MEDICARE, BC | END 2025-07-29 23:59 | disposition home or self-care (01) | LOC: WOUND 02:39 | DX: L89.154 Pressure ulcer of sacral region, stage 4 (principal); G82.22 Paraplegia, incomplete; I25.2 Old myocardial infarction | CPT/HCPCS: A6196 ==

== ENCOUNTER 2025-08-05 00:18 | Day surgery (SDC) | payer MEDICARE, BC | END 2025-08-05 23:00 | disposition home or self-care (01) | LOC: WOUND 00:18 | DX: L89.154 Pressure ulcer of sacral region, stage 4 (principal); G82.22 Paraplegia, incomplete | CPT/HCPCS: A6196 ==

== ENCOUNTER → 2025-08-19 | Day surgery (SDC) | payer MEDICARE, BC | LOC: WOUND 13:47 | DX: L89.154 Pressure ulcer of sacral region, stage 4 (principal); G82.20 Paraplegia, unspecified; I11.0 Hypertensive heart disease with heart failure; I50.9 Heart failure, unspecified; I25.10 Atherosclerotic heart disease of native coronary artery without angina pectoris | CPT/HCPCS: A6196 ==